=== PATIENT | female | born 1980 | race African-American/Black ===

== ENCOUNTER 2018-12-09 16:12 | Emergency (ER) | payer OTHER ==
[~2018-12-09] VITALS: Ht 157.5 cm; Wt 105.2 kg
[~2018-12-09 16:12] MED LIST: AMLO5TAB10 PO; ATOR20TA58 PO; GABA-585 PO; HYDR-2145 PO; HYDR-3164 PO; LIDO1ADH4 TP; LISI-130 PO; LISI1TAB20 PO; METF500T16 PO; NAPR-514 PO; TRAM50TA PO
[2018-12-09] MEDS ORDERED: ALBUTEROL SULFATE 2.5 MG/3 ML NEBU. NEB ONE (16:30)
[2018-12-09] MEDS ORDERED: predniSONE 10 MG TABLET PO ONE (16:30)
--- NOTE | 2018-12-09 16:37 | PHYS DOC ---
Past Medical History Past Medical History: Diabetes-Type II, Hypertension, Sickle Cell Disease, TIA Additional Past Medical Histor: tia 2010 & 2016 (SCOTT TAI APRN) Past Surgical History: Hysterectomy, Tonsillectomy, Tubal ligation, Other Additional Past Surgical Histo: D&C, addenoidectomy, rods & screws Left FA (SCOTT TAI APRN) Alcohol Use: None Drug Use: None (SCOTT TAI APRN) Attending Signature I have participated in the care of this patient and I have reviewed and agree with all pertinent clinical information above including history, exam, and recommendations. (VEENA CESPEDES MD) Adult General Chief Complaint Chief Complaint: PLEURISY HPI HPI Patient is a 38 year old female who presents with 4 days of cough, nasal congestion, shortness of breath chest tightness. Patient denies fever. Patient states Sunday and Sunday she had some vomiting. Patient states she starts coughing so hard is hard for her to catch her breath. Patient states she had asthma as a child. Patient does not smoke. Patient rates her pain a 7 out of 10 and states her chest is tight and sharp to mid chest. (SCOTT TAI APRN) Review of Systems Review of Systems HENT: nasal congestion or denies sore throat [] Respiratory: cough or shortness of breath [] Cardiovascular: No additional information not addressed in HPI [] GI: Denies abdominal pain. + nausea, +vomiting, denies bloody stools or diarrhea [] All other systems were reviewed and found to be within normal limits, except as documented in this note. (SCOTT TAI APRN) Current Medications Current Medications Current Medications Medications (Trade) Dose Ordered Sig/Joanna Start Time Stop Time Status Last Admin Dose Admin Albuterol Sulfate (Ventolin Neb Soln) 2.5 mg 1X ONCE 12/09/18 16:30 12/09/18 16:31 DC 12/09/18 16:37 2.5 MG Prednisone (Prednisone) 50 mg 1X ONCE 12/09/18 16:30 12/09/18 16:31 DC 12/09/18 16:30 50 MG Sodium Chloride 1,000 ml @ 1,000 mls/hr 1X ONCE 12/09/18 16:45 12/09/18 17:44 DC 12/09/18 17:09 1,000 MLS/HR (VEENA CESPEDES MD) Allergies Allergies Allergies Coded Allergies Type Severity Reaction Last Updated Verified No Known Drug Allergies 08/31/18 No (VEENA CESPEDES MD) Physical Exam Physical Exam Constitutional: Well developed, well nourished, no acute distress, non-toxic appearance. [] HENT: Normocephalic, atraumatic, bilateral external ears normal, oropharynx moist, no oral exudates, nose normal. [] Eyes: PERRLA, EOMI, conjunctiva normal, no discharge. [] Neck: Normal range of motion, no tenderness, supple, no stridor. [] Cardiovascular:Heart rate regular rhythm, no murmur [] Lungs & Thorax: Bilateral upper breath sounds clear, lower breath sound diminished to auscultation [] Abdomen: Bowel sounds normal, soft, no tenderness, no masses, no pulsatile masses. [] Skin: Warm, dry, no erythema, no rash. [] Extremities: No tenderness, no cyanosis, no clubbing, ROM intact, no edema. [] Neurologic: Alert and oriented X 3, normal motor function, normal sensory function, no focal deficits noted. [] Psychologic: Affect normal, judgement normal, mood normal. [] (SCOTT TAI APRN) Current Patient Data Vital Signs Vital Signs Date Time Temp Pulse Resp B/P (MAP) Pulse Ox O2 Delivery O2 Flow Rate FiO2 12/09/18 18:50 84 158/92 (114) 98 12/09/18 16:37 Room Air 12/09/18 16:15 98.1 16 98.1 (VEENA CESPEDES MD) Lab Values Laboratory Tests Test 12/09/18 16:30 12/09/18 17:05 Influenza Type A Antigen Negative (NEGATIVE) Influenza Type B Antigen Negative (NEGATIVE) White Blood Count 6.5 x10^3/uL (4.0-11.0) Red Blood Count 6.01 x10^6/uL (3.50-5.70) H Hemoglobin 10.8 g/dL (12.0-15.5) L Hematocrit 34.7 % (36.0-47.0) L Mean Corpuscular Volume 58 fL (79-100) L Mean Corpuscular Hemoglobin 18 pg (25-35) L Mean Corpuscular Hemoglobin Concent 31 g/dL (31-37) Red Cell Distribution Width 17.5 % (11.5-14.5) H Platelet Count 246 x10^3/uL (140-400) Neutrophils (%) (Auto) 45 % (31-73) Lymphocytes (%) (Auto) 41 % (24-48) Monocytes (%) (Auto) 8 % (0-9) Eosinophils (%) (Auto) 6 % (0-3) H Basophils (%) (Auto) 1 % (0-3) Neutrophils # (Auto) 2.9 x10^3/uL (1.8-7.7) Lymphocytes # (Auto) 2.6 x10^3/uL (1.0-4.8) Monocytes # (Auto) 0.5 x10^3/uL (0.0-1.1) Eosinophils # (Auto) 0.4 x10^3/uL (0.0-0.7) Basophils # (Auto) 0.1 x10^3/uL (0.0-0.2) Platelet Estimate Adequate (ADEQUATE) Hypochromasia Marked Anisocytosis Slight Microcytosis Marked Target Cells Few Ovalocytes Occ Absolute Reticulocyte Count 0.087 x10^6/uL (0.020-0.120) Percent Reticulocyte Count 1.5 % (0.5-2.3) Immature Reticulocyte Fraction 0.48 (0.20-0.60) Sodium Level 143 mmol/L (136-145) Potassium Level 3.9 mmol/L (3.5-5.1) Chloride Level 105 mmol/L (98-107) Carbon Dioxide Level 29 mmol/L (21-32) Anion Gap 9 (6-14) Blood Urea Nitrogen 13 mg/dL (7-20) Creatinine 0.8 mg/dL (0.6-1.0) Estimated GFR (Cockcroft-Gault) 97.7 BUN/Creatinine Ratio 16 (6-20) Glucose Level 94 mg/dL (70-99) Calcium Level 8.5 mg/dL (8.5-10.1) Total Bilirubin 0.6 mg/dL (0.2-1.0) Aspartate Amino Transferase (AST) 13 U/L (15-37) L Alanine Aminotransferase (ALT) 13 U/L (14-59) L Alkaline Phosphatase 64 U/L (46-116) Total Protein 7.9 g/dL (6.4-8.2) Albumin 3.7 g/dL (3.4-5.0) Albumin/Globulin Ratio 0.9 (1.0-1.7) L Laboratory Tests 12/09/18 17:05 Laboratory Tests 12/09/18 17:05 (VEENA CESPEDES MD) Lab Values Laboratory Tests Test 12/09/18 16:30 12/09/18 17:05 Influenza Type A Antigen Negative (NEGATIVE) Influenza Type B Antigen Negative (NEGATIVE) Sodium Level 143 mmol/L (136-145) Potassium Level 3.9 mmol/L (3.5-5.1) Chloride Level 105 mmol/L (98-107) Carbon Dioxide Level 29 mmol/L (21-32) Anion Gap 9 (6-14) Blood Urea Nitrogen 13 mg/dL (7-20) Creatinine 0.8 mg/dL (0.6-1.0) Estimated GFR (Cockcroft-Gault) 97.7 BUN/Creatinine Ratio 16 (6-20) Glucose Level 94 mg/dL (70-99) Calcium Level 8.5 mg/dL (8.5-10.1) Total Bilirubin 0.6 mg/dL (0.2-1.0) Aspartate Amino Transferase (AST) 13 U/L (15-37) L Alanine Aminotransferase (ALT) 13 U/L (14-59) L Alkaline Phosphatase 64 U/L (46-116) Total Protein 7.9 g/dL (6.4-8.2) Albumin 3.7 g/dL (3.4-5.0) Albumin/Globulin Ratio 0.9 (1.0-1.7) L Laboratory Tests 12/09/18 17:05 (SCOTT TAI APRN) EKG EKG Sinus Rhythm and no STEMI[] Interpretation Time: [address] Cespedes (SCOTT TAI APRN) Radiology/Procedures Radiology/Procedures [] (SCOTT TAI APRN) Impressions: [facility] [address] [place] [address] IMAGING REPORT Signed PATIENT: JOS CHAMPAGNE MACCOUNT: [id number] : 1980 LOCATION: ER AGE: 38 SEX: F EXAM STATUS: REG ER ORD. PHYSICIAN: SCOTT TAI APRN REASON: cough PROCEDURE: CHEST PA & LATERAL Exam: Chest 2 views INDICATION: Cough TECHNIQUE: Frontal and lateral views the chest Comparisons: 08/31/2018 FINDINGS: The cardiomediastinal silhouette and pulmonary vessels are within normal limits. Patchy airspace disease is noted within the lingula. Remaining lungs are clear. No pleural effusion. IMPRESSION: Lines likely representing developing consolidation in the lingula. Follow-up imaging posttreatment to ensure resolution is recommended. Electronically signed by: Aki Nunez MD (12/09/2018 5:20 PM) [facility] [place] DICTATED and SIGNED BY: AKI NUNEZ MD DATE: 12/09/18 1720 (SCOTT TAI APRN) Course & Med Decision Making Course & Med Decision Making Speaks in full clear sentences. Patient states she has been keeping fluids down today. Patient states she worked today but had to leave the room several times due to coughing. Denies dizziness, abdominal pain, nausea, diarrhea, headache, visual changes. Post nasal drip. Denies throat pain or ear pain. Skin pink warm and dry. Ambulatory with a steady gait. PERRLA. No extremities swelling. She states she's been taking NyQuil and DayQuil, and Mucinex. Chest xray shows Lines likely representing developing consolidation in the lingula. Follow-up imaging posttreatment to ensure resolution is recommended. Patient to be treated with Azithromycin. (SCOTT TAI APRN) Dragon Disclaimer Dragon Disclaimer This electronic medical record was generated, in whole or in part, using a voice recognition dictation system. (SCOTT TAI APRN) Departure Departure Impression: Primary Impression: Pneumonia Disposition: 01 HOME, SELF-CARE Condition: STABLE Referrals: NO PCP (PCP) Patient Instructions: Pneumonia, Adult Additional Instructions: Follow up with primary care provider in the next week. Take medications as prescribed. Drink plenty of fluids. Scripts Benzonatate (TESSALON PERLE) 100 Mg Capsule 1 CAP PO TID, #30 CAP Prov: SCOTT TAI APRN 12/09/18 Albuterol Sulfate (PROAIR HFA INHALER) 8.5 Gm Hfa.aer.ad 1 PUFF INH PRN Q6HRS PRN for SHORTNESS OF BREATH, #1 INHALER 0 Refills Prov: SCOTT TAI APRN 12/09/18 Azithromycin (AZITHROMYCIN TABLET) 250 Mg Tablet 1 PKG PO UD for 5 Days, #6 TAB 0 Refills 2 the first day followed by 1 for days 2-5 Prov: SCOTT TAI APRN 12/09/18 Methylprednisolone (MEDROL) 4 Mg Tab.ds.pk 1 PKG PO UD, #1 PKG Prov: SCOTT TAI APRN 12/09/18 Problem Qualifiers Primary Impression: Pneumonia Pneumonia type: due to unspecified organism Laterality: left Lung location: unspecified part of lung Qualified Codes: J18.9 - Pneumonia, unspecified organism SCOTT ATI APRN Dec 09, 2018 16:36 VEENA CESPEDES MD Dec 10, 2018 06:09
[2018-12-09] MEDS ORDERED: IV NORMAL SALINE 1000ML BAG 1,000 ML IV ONE (16:45)
[2018-12-09 17:00] LABS: INFLUENZA A PATIENT NEGATIVE (NEGATIVE); INFLUENZA B PATIENT NEGATIVE (NEGATIVE)
[2018-12-09 17:19] LABS: BASO # 0.1 x10^3/uL (0.0-0.2); BASO % 1 % (0-3); EOS # 0.4 x10^3/uL (0.0-0.7); EOS % 6 % (0-3); HEMATOCRIT 34.7 % (36.0-47.0); HEMOGLOBIN 10.8 g/dL (12.0-15.5); LYMPH # 2.6 x10^3/uL (1.0-4.8); LYMPH % 41 % (24-48); MEAN CORPUSCULAR HEMOGLOBIN 18 pg (25-35); MEAN CORPUSCULAR HGB CONC 31 g/dL (31-37); MEAN CORPUSCULAR VOLUME 58 fL (79-100); MONO # 0.5 x10^3/uL (0.0-1.1); MONO % 8 % (0-9); NEUT # 2.9 x10^3/uL (1.8-7.7); NEUT % 45 % (31-73); PLATELET COUNT 246 x10^3/uL (140-400); RED BLOOD COUNT 6.01 x10^6/uL (3.50-5.40); RED CELL DISTRIBUTION WIDTH 17.5 % (11.5-14.5); WHITE BLOOD COUNT 6.5 x10^3/uL (4.0-11.0)
[2018-12-09 17:21] LABS: CALCIUM 8.5 mg/dL (8.5-10.1); CREATININE 0.8 mg/dL (0.6-1.0); GFR 97.7; POTASSIUM 3.9 mmol/L (3.5-5.1)
--- NOTE | 2018-12-09 17:23 | RAD ---
Exam: Chest 2 views INDICATION: Cough TECHNIQUE: Frontal and lateral views the chest Comparisons: 08/31/2018 FINDINGS: The cardiomediastinal silhouette and pulmonary vessels are within normal limits. Patchy airspace disease is noted within the lingula. Remaining lungs are clear. No pleural effusion. IMPRESSION: Lines likely representing developing consolidation in the lingula. Follow-up imaging posttreatment to ensure resolution is recommended. Electronically signed by: Aki Pizarro MD (12/09/2018 5:20 PM) [facility]
[2018-12-09 17:27] LABS: ALBUMIN 3.7 g/dL (3.4-5.0); ALBUMIN/GLOBULIN RATIO 0.9 (1.0-1.7); TOTAL BILIRUBIN 0.6 mg/dL (0.2-1.0); TOTAL PROTEIN 7.9 g/dL (6.4-8.2)
[2018-12-09] MEDS ORDERED: METH4TAB2 PO (17:40)
[2018-12-09] MEDS ORDERED: BENZ100C PO (17:40)
[2018-12-09] MEDS ORDERED: AZIT250T6 PO (17:40)
[2018-12-09] MEDS ORDERED: ALBU2.5V8 INH (17:40)
[2018-12-09 18:50] VITALS: BP 158/92
[2018-12-09 19:17] LABS: PLT ESTIMATE ADEQUATE (ADEQUATE)
[2018-12-09 19:22] LABS: ANISOCYTOSIS SLIGHT; HYPOCHROMIA MARKED; MICROCYTOSIS MARKED; OVALOCYTES OCC; TARGET CELLS FEW
== END 2018-12-09 18:59 | disposition home or self-care (01) ==
LOC: ER 16:12
DX: J18.9 Pneumonia, unspecified organism (principal); R11.2 Nausea with vomiting, unspecified; I10 Essential (primary) hypertension; E11.9 Type 2 diabetes mellitus without complications; Z86.73 Personal history of transient ischemic attack (TIA), and cerebral infarction without residual deficits
CPT/HCPCS: 36415; 71046; 80053; 85025; 85045; 87804; 94640; 96360; 96361; 99285; J7030; J7512; J7613

== ENCOUNTER → 2019-09-12 | Outpatient (CLI) | payer OTHER ==
[~2019-09-12] MED LIST changes: +ALBU2.5V8 INH; +AZIT250T6 PO; +BENZ100C PO; +METH4TAB2 PO
== END | disposition home or self-care (01) ==
LOC: LAB 14:12
PROVIDERS: ATTEND Internal Medicine Pulmonary Disease
DX: Z11.59 Encounter for screening for other viral diseases (principal)
CPT/HCPCS: U0003-CS

== ENCOUNTER 2019-10-27 08:57 | Emergency (ER) | payer OTHER ==
[~2019-10-27] VITALS: Ht 157.5 cm; Wt 115.4 kg
--- NOTE | 2019-10-27 11:05 | RAD ---
CHEST PA LATERAL History: Reason: COUGH AND CONGESTION,PT STATES THINK SHE HAS GERD. / Spl. Instructions: / History: Comparison: December 09, 2018 Findings: No consolidation or pleural effusion. Normal heart size. No pneumothorax. Calcified right midlung pulmonary nodule, likely prior granulomatous disease, unchanged. Impression: 1. No acute cardiopulmonary process. Electronically signed by: Manjeet Bermeo DO (10/27/2019 11:02 AM) [facility]
[2019-10-27 11:54] LABS: CALCIUM 8.7 mg/dL (8.5-10.1); CREATININE 0.5 mg/dL (0.6-1.0); GFR 167.1; POTASSIUM 4.6 mmol/L (3.5-5.1)
[2019-10-27 12:00] LABS: ALBUMIN 3.6 g/dL (3.4-5.0); ALBUMIN/GLOBULIN RATIO 0.9 (1.0-1.7); TOTAL BILIRUBIN 0.7 mg/dL (0.2-1.0); TOTAL PROTEIN 7.8 g/dL (6.4-8.2)
[2019-10-27 12:02] LABS: PROTHROMBIN TIME PATIENT 12.5 SEC (11.7-14.0)
[2019-10-27 12:27] LABS: BILIRUBIN,URINE NEGATIVE (NEG); CLARITY,URINE CLEAR; COLOR,URINE YELLOW; NITRITE,URINE NEGATIVE (NEG); PH,URINE 6.5 (<5.0-8.0); PROTEIN,URINE NEGATIVE (NEG-TRACE)
[2019-10-27 12:34] LABS: BASO # 0.1 x10^3/uL (0.0-0.2); BASO % 1 % (0-3); EOS # 0.2 x10^3/uL (0.0-0.7); EOS % 3 % (0-3); HEMATOCRIT 38.2 % (36.0-47.0); HEMOGLOBIN 11.8 g/dL (12.0-15.5); LYMPH # 2.5 x10^3/uL (1.0-4.8); LYMPH % 39 % (24-48); MEAN CORPUSCULAR HEMOGLOBIN 18 pg (25-35); MEAN CORPUSCULAR HGB CONC 31 g/dL (31-37); MEAN CORPUSCULAR VOLUME 58 fL (79-100); MONO # 0.4 x10^3/uL (0.0-1.1); MONO % 6 % (0-9); NEUT # 3.4 x10^3/uL (1.8-7.7); NEUT % 52 % (31-73); PLATELET COUNT 288 x10^3/uL (140-400); RED BLOOD COUNT 6.55 x10^6/uL (3.50-5.40); RED CELL DISTRIBUTION WIDTH 17.4 % (11.5-14.5); WHITE BLOOD COUNT 6.5 x10^3/uL (4.0-11.0)
[2019-10-27 12:50] LABS: BACTERIA,URINE FEW /HPF (0-FEW); RBC,URINE OCC /HPF (0-2); SQUAMOUS EPITHELIAL CELL,UR MOD /LPF
[2019-10-27] MEDS ORDERED: SUCR1TAB35 PO (13:38)
[2019-10-27] MEDS ORDERED: OMEP20TA63 PO (13:38)
[2019-10-27 13:39] VITALS: BP 188/89
--- NOTE | 2019-10-27 13:39 | PHYS DOC ---
Past Medical History Past Medical History: Diabetes-Type II, GERD, Hypertension, Sickle Cell Disease, TIA Additional Past Medical Histor: tia 2010 & 2016,TMJ Past Surgical History: Hysterectomy, Tonsillectomy, Tubal ligation, Other Additional Past Surgical Histo: D&C, addenoidectomy, rods & screws Left FA Smoking Status: Never Smoker Alcohol Use: None Drug Use: None General Adult EDM: Chief Complaint: abdominal pain HPI: HPI: Patient is a 39 year old female who presented to ER today for evaluation of multiple problem. Patient says she has been having epigastric abdominal pain off and on sore for several months. Patient said every morning she woke up she felt a sour taste, she saw some dark staining on her tongue. Patient says she has a history of acid reflux. Patient says she has been having some congestion, nonproductive for several weeks as well. Patient denies any fever, no chest pain, no trouble breathing. Patient said her TMJ flareup also whenever she open her mouth she hears some cracking noise. Review of Systems: Review of Systems: Constitutional: Denies fever or chills. [] Eyes: Denies change in visual acuity. [] HENT: Denies nasal congestion or sore throat. [] Respiratory: Positive for nonproductive cough, no trouble breathing.] Cardiovascular: Denies chest pain or edema. [] GI: Positive for abdominal pain, no nausea vomiting. : Denies dysuria. [] Musculoskeletal: Denies back pain or joint pain. [] Integument: Denies rash. [] Neurologic: Denies headache, focal weakness or sensory changes. [] Endocrine: Denies polyuria or polydipsia. [] Lymphatic: Denies swollen glands. [] Psychiatric: Denies depression or anxiety. [] Heart Score: Risk Factors: Risk Factors: DM, Current or recent (<one month) smoker, HTN, HLP, family history of CAD, obesity. Risk Scores: Score 0 - 3: 2.5% MACE over next 6 weeks - Discharge Home Score 4 - 6: 20.3% MACE over next 6 weeks - Admit for Clinical Observation Score 7 - 10: 72.7% MACE over next 6 weeks - Early Invasive Strategies Allergies: Allergies: Allergies Coded Allergies Type Severity Reaction Last Updated Verified No Known Drug Allergies 08/31/18 No Physical Exam: PE: Constitutional: Well developed, well nourished, no acute distress, non-toxic appearance. [] HENT: Normocephalic, atraumatic, bilateral external ears normal, oropharynx m oist, no oral exudates, nose normal. [] Eyes: PERRLA, EOMI, conjunctiva normal, no discharge. [] Neck: Normal range of motion, no tenderness, supple, no stridor. [] Cardiovascular:Heart rate regular rhythm, no murmur [] Lungs & Thorax: Bilateral breath sounds clear to auscultation [] Abdomen: Bowel sounds normal, soft, no tenderness, no masses, no pulsatile masses. [] Skin: Warm, dry, no erythema, no rash. [] Back: No tenderness, no CVA tenderness. [] Extremities: No tenderness, no cyanosis, no clubbing, ROM intact, no edema. [] Neurologic: Alert and oriented X 3, normal motor function, normal sensory function, no focal deficits noted. [] Psychologic: Affect normal, judgement normal, mood normal. [] Current Patient Data: Labs: Laboratory Tests Test 10/27/19 11:25 10/27/19 11:35 Urine Collection Type Unknown Urine Color Yellow Urine Clarity Clear Urine pH 6.5 (<5.0-8.0) Urine Specific [place] 1.020 (1.000-1.030) Urine Protein Negative mg/dL (NEG-TRACE) Urine Glucose (UA) Negative mg/dL (NEG) Urine Ketones (Stick) Negative mg/dL (NEG) Urine Blood Negative (NEG) Urine Nitrite Negative (NEG) Urine Bilirubin Negative (NEG) Urine Urobilinogen Dipstick 1.0 mg/dL (0.2 mg/dL) Urine Leukocyte Esterase Negative (NEG) Urine RBC Occ /HPF (0-2) Urine WBC 1-4 /HPF (0-4) Urine Squamous Epithelial Cells Mod /LPF Urine Bacteria Few /HPF (0-FEW) Urine Mucus Marked /LPF White Blood Count 6.5 x10^3/uL (4.0-11.0) Red Blood Count 6.55 x10^6/uL (3.50-5.40) H Hemoglobin 11.8 g/dL (12.0-15.5) L Hematocrit 38.2 % (36.0-47.0) Mean Corpuscular Volume 58 fL (79-100) L Mean Corpuscular Hemoglobin 18 pg (25-35) L Mean Corpuscular Hemoglobin Concent 31 g/dL (31-37) Red Cell Distribution Width 17.4 % (11.5-14.5) H Platelet Count 288 x10^3/uL (140-400) Neutrophils (%) (Auto) 52 % (31-73) Lymphocytes (%) (Auto) 39 % (24-48) Monocytes (%) (Auto) 6 % (0-9) Eosinophils (%) (Auto) 3 % (0-3) Basophils (%) (Auto) 1 % (0-3) Neutrophils # (Auto) 3.4 x10^3/uL (1.8-7.7) Lymphocytes # (Auto) 2.5 x10^3/uL (1.0-4.8) Monocytes # (Auto) 0.4 x10^3/uL (0.0-1.1) Eosinophils # (Auto) 0.2 x10^3/uL (0.0-0.7) Basophils # (Auto) 0.1 x10^3/uL (0.0-0.2) Platelet Estimate Pending Prothrombin Time 12.5 SEC (11.7-14.0) Prothrombin Time INR 1.0 (0.8-1.1) Activated Partial Thromboplast Time 29 SEC (24-38) Sodium Level 139 mmol/L (136-145) Potassium Level 4.6 mmol/L (3.5-5.1) Chloride Level 103 mmol/L (98-107) Carbon Dioxide Level 29 mmol/L (21-32) Anion Gap 7 (6-14) Blood Urea Nitrogen 8 mg/dL (7-20) Creatinine 0.5 mg/dL (0.6-1.0) L Estimated GFR (Cockcroft-Gault) 167.1 BUN/Creatinine Ratio 16 (6-20) Glucose Level 117 mg/dL (70-99) H Calcium Level 8.7 mg/dL (8.5-10.1) Total Bilirubin 0.7 mg/dL (0.2-1.0) Aspartate Amino Transferase (AST) 21 U/L (15-37) Alanine Aminotransferase (ALT) 20 U/L (14-59) Alkaline Phosphatase 68 U/L (46-116) Total Protein 7.8 g/dL (6.4-8.2) Albumin 3.6 g/dL (3.4-5.0) Albumin/Globulin Ratio 0.9 (1.0-1.7) L Lipase 110 U/L (73-393) Laboratory Tests 10/27/19 11:35 Laboratory Tests 10/27/19 11:35 Vital Signs: Vital Signs Date Time Temp Pulse Resp B/P (MAP) Pulse Ox O2 Delivery O2 Flow Rate FiO2 10/27/19 12:39 72 177/111 (133) 98 Room Air 10/27/19 09:55 98.7 18 98.7 EKG: EKG: [] Radiology/Procedures: Radiology/Procedures: [][facility] [address] [place] [address] IMAGING REPORT Signed PATIENT: JOS CHAMPAGNE MACCOUNT: [id number] : 1980 LOCATION: ER AGE: 39 SEX: F EXAM STATUS: REG ER ORD. PHYSICIAN: MIRI MOORE DO REASON: COUGH AND CONGESTION,PT STATES THINK SHE HAS GERD. PROCEDURE: CHEST PA & LATERAL CHEST PA LATERAL History: Reason: COUGH AND CONGESTION,PT STATES THINK SHE HAS GERD. / Spl. Instructions: / History: Comparison: December 09, 2018 Findings: No consolidation or pleural effusion. Normal heart size. No pneumothorax. Calcified right midlung pulmonary nodule, likely prior granulomatous disease, unchanged. Impression: 1. No acute cardiopulmonary process. Electronically signed by: Manjeet Bermeo DO (10/27/2019 11:02 AM) [facility] DICTATED and SIGNED BY: MANJEET BERMEO DO DATE: 10/27/19 1102 Course & Med Decision Making: Course & Med Decision Making Pertinent Labs and Imaging studies reviewed. (See chart for details) [] Dragon Disclaimer: Dragon Disclaimer: This electronic medical record was generated, in whole or in part, using a voice recognition dictation system. Departure Departure Impression: Primary Impression: Gastritis Disposition: 01 HOME, SELF-CARE Condition: IMPROVED Referrals: NO PCP (PCP) ADAM HERNANDEZ MD please follow up with this GI doctor for outpatient evaluation. Patient Instructions: Gastritis, Adult Scripts Omeprazole Magnesium (PRILOSEC OTC) 20 Mg Tablet. 20 MG PO DAILY for 30 Days, #30 TAB Prov: MIRI MOORE DO 10/27/19 Sucralfate (CARAFATE) 1 Gm Tablet 1 TAB PO QID for 14 Days, #56 TAB 0 Refills Prov: MIRI MOORE DO 10/27/19 Justicifation of Admission Dx: Justifications for Admission: Justification of Admission Dx: N/A MIRI MOORE DO Oct 27, 2019 13:39
[2019-10-27 16:28] LABS: HYPOCHROMIA MOD; MICROCYTOSIS MARKED; PLT ESTIMATE ADEQUATE (ADEQUATE); POLYCHROMASIA SLIGHT; SCHISTOCYTES OCC
[2019-10-27 16:29] LABS: ANISOCYTOSIS SLIGHT; TARGET CELLS OCC
== END 2019-10-27 13:47 | disposition home or self-care (01) ==
LOC: ER 08:57
DX: K29.70 Gastritis, unspecified, without bleeding (principal); R10.13 Epigastric pain; R09.81 Nasal congestion; R05 Cough; E11.9 Type 2 diabetes mellitus without complications; K21.9 Gastro-esophageal reflux disease without esophagitis; I10 Essential (primary) hypertension; Z86.73 Personal history of transient ischemic attack (TIA), and cerebral infarction without residual deficits; Z90.710 Acquired absence of both cervix and uterus; Z98.51 Tubal ligation status; Z98.890 Other specified postprocedural states; Z90.89 Acquired absence of other organs
CPT/HCPCS: 36415; 71046; 80053; 81001; 83690; 85025; 85610; 85730; 99284

== ENCOUNTER → 2019-11-21 | Outpatient (CLI) | payer OTHER ==
[2019-10-27 13:39] VITALS: BP 188/89
[~2019-11-21] MED LIST changes: +OMEP20TA63 PO; +SUCR1TAB35 PO
--- NOTE | 2019-11-21 09:02 | RAD ---
Examination: ABDOMEN LTD History: Reason: BILE REFLUX GASTRITIS / Spl. Instructions: / History: Comparison/Correlation: None Findings: Upper abdominal ultrasound exam was performed. Nodular contour of the liver is evident. Liver has a length of 22.6 cm. Common bile duct diameter of 0.4 cm noted. Portal venous flow is normal. Gallbladder is normal. No cholelithiasis. Right kidney measures 12 cm x 5.9 cm x 4.6. No right hydronephrosis. Proximal pancreas is normal. Distal pancreas is obscured by bowel gas. Inferior vena cava is unremarkable. There is no upper abdominal ascites. No intrahepatic dilatation. Abdominal aorta was not imaged. Impression: Hepatomegaly. Nodular contour of the liver of concern for cirrhosis or other fibrotic process. Electronically signed by: Gilberto Dickey MD (11/21/2019 8:59 AM) [id number]
== END | disposition home or self-care (01) ==
LOC: US 09:02
PROVIDERS: ATTEND Family Medicine
DX: K29.60 Other gastritis without bleeding (principal); K76.0 Fatty (change of) liver, not elsewhere classified
CPT/HCPCS: 76705

== ENCOUNTER → 2019-12-11 | Outpatient (CLI) | payer OTHER ==
[~2019-12-11] MED LIST changes: +AMLO-186 PO; -AMLO5TAB10 PO
[2019-12-11 13:59] LABS: ALBUMIN 3.2 g/dL (3.4-5.0); ALBUMIN/GLOBULIN RATIO 0.8 (1.0-1.7); CALCIUM 8.3 mg/dL (8.5-10.1); CREATININE 0.6 mg/dL (0.6-1.0); GFR 135.4; POTASSIUM 3.7 mmol/L (3.5-5.1); TOTAL BILIRUBIN 0.6 mg/dL (0.2-1.0); TOTAL PROTEIN 7.4 g/dL (6.4-8.2)
== END ==
LOC: LAB 12:37
PROVIDERS: ATTEND Internal Medicine Gastroenterology
DX: K74.69 Other cirrhosis of liver (principal)
CPT/HCPCS: 80053; 82728; 83516; 83540; 83550; 86038; 86706; 86803; 87340; 87522; 87902

== ENCOUNTER → 2020-01-16 | Outpatient (CLI) | payer OTHER | LOC: LAB 10:54 | PROVIDERS: ATTEND Internal Medicine Pulmonary Disease | DX: U07.1 COVID-19 (principal); R06.02 Shortness of breath | CPT/HCPCS: U0003 ==

== ENCOUNTER → 2020-01-30 | Outpatient (CLI) | payer OTHER ==
[2020-01-30 10:04] LABS: BASO # 0.1 x10^3/uL (0.0-0.2); BASO % 1 % (0-3); EOS # 0.2 x10^3/uL (0.0-0.7); EOS % 2 % (0-3); HEMOGLOBIN 10.3 g/dL (12.0-15.5); LYMPH # 2.2 x10^3/uL (1.0-4.8); LYMPH % 27 % (24-48); MEAN CORPUSCULAR HEMOGLOBIN 18 pg (25-35); MEAN CORPUSCULAR HGB CONC 31 g/dL (31-37); MEAN CORPUSCULAR VOLUME 57 fL (79-100); MONO # 0.5 x10^3/uL (0.0-1.1); MONO % 6 % (0-9); NEUT # 5.4 x10^3/uL (1.8-7.7); NEUT % 64 % (31-73); PLATELET COUNT 261 x10^3/uL (140-400); RED BLOOD COUNT 5.79 x10^6/uL (3.50-5.40); RED CELL DISTRIBUTION WIDTH 17.5 % (11.5-14.5); WHITE BLOOD COUNT 8.4 x10^3/uL (4.0-11.0)
[2020-01-30 10:57] LABS: ALBUMIN 3.4 g/dL (3.4-5.0); ALBUMIN/GLOBULIN RATIO 0.8 (1.0-1.7); CALCIUM 8.6 mg/dL (8.5-10.1); CREATININE 0.6 mg/dL (0.6-1.0); GFR 135.4; POTASSIUM 3.7 mmol/L (3.5-5.1); TOTAL BILIRUBIN 0.6 mg/dL (0.2-1.0); TOTAL PROTEIN 7.5 g/dL (6.4-8.2)
[2020-01-30 11:11] LABS: HYPOCHROMIA PRESENT; PLT ESTIMATE ADEQUATE (ADEQUATE); POLYCHROMASIA PRESENT
[2020-01-30 11:12] LABS: ANISOCYTOSIS PRESENT; MICROCYTOSIS PRESENT
[2020-01-31 04:24] LABS: HEMOGLOBIN A1C 7.4 % (4.8-5.6)
== END ==
LOC: LAB 09:30
PROVIDERS: ATTEND Family Medicine
DX: D57.1 Sickle-cell disease without crisis (principal); E11.9 Type 2 diabetes mellitus without complications; I10 Essential (primary) hypertension; R10.13 Epigastric pain
CPT/HCPCS: 80053; 82150; 82728; 83036; 83540; 83550; 83690; 85025; 86677

== ENCOUNTER 2020-02-16 21:52 | Inpatient (IN) | payer OTHER ==
[~2020-02-16] VITALS: Ht 157.5 cm; Wt 119.5 kg
[2020-02-16 22:49] LABS: BASO # 0.2 x10^3/uL (0.0-0.2); BASO % 2 % (0-3); EOS # 0.2 x10^3/uL (0.0-0.7); EOS % 2 % (0-3); HEMATOCRIT 33.1 % (36.0-47.0); HEMOGLOBIN 10.2 g/dL (12.0-15.5); LYMPH # 3.5 x10^3/uL (1.0-4.8); LYMPH % 39 % (24-48); MEAN CORPUSCULAR HEMOGLOBIN 18 pg (25-35); MEAN CORPUSCULAR HGB CONC 31 g/dL (31-37); MEAN CORPUSCULAR VOLUME 57 fL (79-100); MONO # 0.5 x10^3/uL (0.0-1.1); MONO % 5 % (0-9); NEUT # 4.7 x10^3/uL (1.8-7.7); NEUT % 52 % (31-73); PLATELET COUNT 254 x10^3/uL (140-400); RED BLOOD COUNT 5.79 x10^6/uL (3.50-5.40); RED CELL DISTRIBUTION WIDTH 17.6 % (11.5-14.5)
[2020-02-16 22:57] LABS: PROTHROMBIN TIME PATIENT 13.4 SEC (11.7-14.0)
[2020-02-16] MEDS ORDERED: IV NORMAL SALINE 1000ML BAG 1,000 ML IV ONE (23:00)
[2020-02-16 23:31] LABS: CALCIUM 8.8 mg/dL (8.5-10.1); CREATININE 0.8 mg/dL (0.6-1.0); GFR 97.1; POTASSIUM 3.6 mmol/L (3.5-5.1)
[2020-02-16 23:34] LABS: % BASOS 2 % (0-3); % EOS 2 % (0-5); % LYMPHS 42 % (24-48); % MONOS 4 % (0-10); % SEGS 50 % (35-66)
[2020-02-16 23:35] LABS: ANISOCYTOSIS SLIGHT; HYPOCHROMIA MARKED; MICROCYTOSIS MARKED; PLT ESTIMATE ADEQUATE (ADEQUATE); POLYCHROMASIA SLIGHT
[2020-02-16 23:36] LABS: TARGET CELLS OCC
[2020-02-16 23:37] LABS: ALBUMIN 3.5 g/dL (3.4-5.0); ALBUMIN/GLOBULIN RATIO 0.8 (1.0-1.7); TOTAL BILIRUBIN 0.8 mg/dL (0.2-1.0); TOTAL PROTEIN 7.9 g/dL (6.4-8.2)
[2020-02-16] MEDS ORDERED: IOHEXOL 300 MG/ML 100ML VIAL. IV ONE (23:45)
[2020-02-16] MEDS ORDERED: CONTRAST GIVEN. MC PRN (23:45)
[2020-02-16] MEDS ORDERED: IOHEXOL 240 MG/ML 50ML VIAL. PO ONE (23:45)
[2020-02-17] VITALS (7 sets, daily range): BP systolic 137–158; BP diastolic 80–107
--- NOTE | 2020-02-17 00:08 | ED.ADGEN ---
Past Medical History Past Medical History: Diabetes-Type II, GERD, Hypertension, Sickle Cell Disease, TIA Additional Past Medical Histor: tia 2011 & 2016,TMJ Past Surgical History: Hysterectomy, Tonsillectomy, Tubal ligation, Other Additional Past Surgical Histo: D&C, addenoidectomy, rods & screws Left FA Smoking Status: Never Smoker Alcohol Use: None Drug Use: None General Adult EDM: Chief Complaint: BLOODY STOOL HPI: HPI: Patient is a 39-year-old female who presents to the emergency room complaining of rectal bleeding. She states that she has had 3 episodes of rectal bleeding since this evening. She states one of them she believes was about 100 mL. She has never had rectal bleeding previously. She was recently diagnosed with cirrhosis of the liver but is never had any kind of bleeding due to this. She denies any nausea, vomiting, diarrhea, severe abdominal pain. She does have some mild abdominal discomfort in her lower abdomen. She was feeling fine until the rectal bleeding started. She has not had any fevers or chills. She denies any traumas. She does not have rectal sex. Review of Systems: Review of Systems: Complete ROS is negative unless otherwise documented in HPI Current Medications: Current Medications Medications (Trade) Dose Ordered Sig/Joanna Start Time Stop Time Status Last Admin Dose Admin Info (CONTRAST GIVEN -- Rx MONITORING) 1 each PRN DAILY PRN 02/16/20 23:45 02/18/20 23:44 Iohexol (Omnipaque 240 Mg/ml) 30 ml 1X ONCE 02/16/20 23:45 02/16/20 23:46 DC 02/17/20 00:03 30 ML Iohexol (Omnipaque 300 Mg/ml) 75 ml 1X ONCE 02/16/20 23:45 02/16/20 23:46 DC 02/17/20 00:03 75 ML Piperacillin Sod/ Tazobactam Sod 3.375 gm/Sodium Chloride 50 ml @ 100 mls/hr 1X ONCE 02/17/20 01:15 02/17/20 01:44 UNV Sodium Chloride 1,000 ml @ 1,000 mls/hr 1X ONCE 02/16/20 23:00 02/16/20 23:59 DC 02/16/20 23:07 1,000 MLS/HR Allergies: Allergies: Allergies Coded Allergies Type Severity Reaction Last Updated Verified No Known Drug Allergies 08/31/18 No Physical Exam: PE: General: Awake, alert, NAD. Well Nourished, well hydrated. Cooperative HEENT: Atraumatic, EOMI, PERRL, airway patent, moist oral mucosa Neck: Supple, trachea midline Respiratory: CTA bilaterally, normal effort, no wheezing/crackles CV: RRR, no murmur, cap refill <2 GI: Soft, nondistended, nontender, no masses MSK: No obvious deformities Skin: Warm, dry, intact Neuro: A&O x3, speech NL, sensory and motor grossly intact, no focal deficits Psych: Normal affect, normal mood, not suicidal or homicidal Current Patient Data: Labs: Laboratory Tests Test 02/16/20 22:40 02/16/20 23:02 02/17/20 00:23 White Blood Count 9.0 x10^3/uL (4.0-11.0) Red Blood Count 5.79 x10^6/uL (3.50-5.40) H Hemoglobin 10.2 g/dL (12.0-15.5) L Hematocrit 33.1 % (36.0-47.0) L Mean Corpuscular Volume 57 fL (79-100) L Mean Corpuscular Hemoglobin 18 pg (25-35) L Mean Corpuscular Hemoglobin Concent 31 g/dL (31-37) Red Cell Distribution Width 17.6 % (11.5-14.5) H Platelet Count 254 x10^3/uL (140-400) Neutrophils (%) (Auto) 52 % (31-73) Lymphocytes (%) (Auto) 39 % (24-48) Monocytes (%) (Auto) 5 % (0-9) Eosinophils (%) (Auto) 2 % (0-3) Basophils (%) (Auto) 2 % (0-3) Neutrophils # (Auto) 4.7 x10^3/uL (1.8-7.7) Lymphocytes # (Auto) 3.5 x10^3/uL (1.0-4.8) Monocytes # (Auto) 0.5 x10^3/uL (0.0-1.1) Eosinophils # (Auto) 0.2 x10^3/uL (0.0-0.7) Basophils # (Auto) 0.2 x10^3/uL (0.0-0.2) Segmented Neutrophils % 50 % (35-66) Lymphocytes % 42 % (24-48) Monocytes % 4 % (0-10) Eosinophils % 2 % (0-5) Basophils % 2 % (0-3) Platelet Estimate Adequate (ADEQUATE) Polychromasia Slight Hypochromasia Marked Anisocytosis Slight Microcytosis Marked Target Cells Occ Prothrombin Time 13.4 SEC (11.7-14.0) Prothrombin Time INR 1.1 (0.8-1.1) Sodium Level 141 mmol/L (136-145) Potassium Level 3.6 mmol/L (3.5-5.1) Chloride Level 103 mmol/L (98-107) Carbon Dioxide Level 29 mmol/L (21-32) Anion Gap 9 (6-14) Blood Urea Nitrogen 12 mg/dL (7-20) Creatinine 0.8 mg/dL (0.6-1.0) Estimated GFR (Cockcroft-Gault) 97.1 BUN/Creatinine Ratio 15 (6-20) Glucose Level 120 mg/dL (70-99) H Calcium Level 8.8 mg/dL (8.5-10.1) Total Bilirubin 0.8 mg/dL (0.2-1.0) Aspartate Amino Transferase (AST) 13 U/L (15-37) L Alanine Aminotransferase (ALT) 19 U/L (14-59) Alkaline Phosphatase 86 U/L (46-116) Total Protein 7.9 g/dL (6.4-8.2) Albumin 3.5 g/dL (3.4-5.0) Albumin/Globulin Ratio 0.8 (1.0-1.7) L Urine Collection Type Unknown Urine Color Yellow Urine Clarity Clear Urine pH 7.0 (<5.0-8.0) Urine Specific [place] >=1.030 (1.000-1.030) Urine Protein Negative mg/dL (NEG-TRACE) Urine Glucose (UA) Negative mg/dL (NEG) Urine Ketones (Stick) Negative mg/dL (NEG) Urine Blood Negative (NEG) Urine Nitrite Negative (NEG) Urine Bilirubin Negative (NEG) Urine Urobilinogen Dipstick 1.0 mg/dL (0.2 mg/dL) Urine Leukocyte Esterase Negative (NEG) Urine RBC Occ /HPF (0-2) Urine WBC 1-4 /HPF (0-4) Urine Squamous Epithelial Cells Many /LPF Urine Bacteria Few /HPF (0-FEW) Urine Mucus Slight /LPF Laboratory Tests 02/16/20 22:40 Laboratory Tests 02/16/20 23:02 Vital Signs: Vital Signs Date Time Temp Pulse Resp B/P (MAP) Pulse Ox O2 Delivery O2 Flow Rate FiO2 02/16/20 22:23 98.7 90 16 161/105 (123) 100 Room Air 98.7 EKG: EKG: [] Heart Score: Risk Factors: Risk Factors: DM, Current or recent (<one month) smoker, HTN, HLP, family history of CAD, obesity. Risk Scores: Score 0 - 3: 2.5% MACE over next 6 weeks - Discharge Home Score 4 - 6: 20.3% MACE over next 6 weeks - Admit for Clinical Observation Score 7 - 10: 72.7% MACE over next 6 weeks - Early Invasive Strategies Radiology/Procedures: Radiology/Procedures: [] Course & Med Decision Making: Course & Med Decision Making Pertinent Labs and Imaging studies reviewed. (See chart for details) Patient is 39-year-old female presents to the emergency room with rectal bleeding. Patient has a complicated medical history including sickle cell disease and cirrhosis of the liver. Coags, CBC, CMP, CT abdomen pelvis were ordered to evaluate for causes of bleeding. Coags and platelets are normal at this time. CT shows proctitis. Radiology recommends visualization to rule out malignancy. Patient will be admitted for consult by GIGriselda Price Disclaimer: Albert Disclaimer: This electronic medical record was generated, in whole or in part, using a voice recognition dictation system. Departure Departure Impression: Primary Impression: Proctitis Disposition: ADMITTED INPT THIS HOSP Condition: STABLE Referrals: Alicia PRINCE MD (PCP) KLAUS MANCILLA MD Feb 17, 2020 00:08
--- NOTE | 2020-02-17 00:17 | RAD ---
PQRS Compliance Statement: One or more of the following individualized dose reduction techniques were utilized for this examinat ion: 1. Automated exposure control 2. Adjustment of the mA and/or kV according to patient size 3. Use of iterative reconstruction technique CT abdomen/pelvis with contrast 02/16/2020 12:04 AM INDICATION: Rectal bleeding, sclerosis COMPARISON: None available TECHNIQUE: Multiple axial CT images of the abdomen and pelvis were obtained after the intravenous adm inistration of 75 mL Omnipaque 300. Coronal and sagittal reformats are provided. FINDINGS: Lung bases are clear. Heart size is within normal limits. Hepatomegaly. Spleen is not enlarged. Right hepatic lobe measures 23.4 cm. No definite hepatic mass i s identified. Adrenal glands are normal in appearance. Pancreas and gallbladder are normal. The abdom inal aorta is normal in course and caliber. There are no pathologically enlarged lymph nodes in the a bdomen and pelvis. There is no abdominal free fluid. There is no free intraperitoneal air. The kidney s enhance symmetrically. There is no suspicious renal mass. There is no hydronephrosis. There are no suspected calculi within the kidneys, ureters or urinary bladder. Urinary bladder is within normal li mits given degree of distention. Oral contrast was administered. Opacified bowel loops demonstrate no rmal mucosal fold pattern no bowel obstruction or inflammation. Appendix is normal in appearance. Mil d asymmetric fat stranding identified within the right mesorectal fat. Consideration may be given for proctitis with mild wall thickening of the rectum. Mild diverticulosis. No suspicious osseous normal ity. IMPRESSION: 1. Proctitis with inflammation localized to the rectum. Recommend direct visualization exclude underl mian neoplastic process. 2. Hepatomegaly. Electronically signed by: Clarisse Hussein MD (02/17/2020 12:14 AM) [facility]
[2020-02-17 00:33] LABS: BILIRUBIN,URINE NEGATIVE (NEG); CLARITY,URINE CLEAR; COLOR,URINE YELLOW; NITRITE,URINE NEGATIVE (NEG); PROTEIN,URINE NEGATIVE (NEG-TRACE)
[2020-02-17 00:40] LABS: BACTERIA,URINE FEW /HPF (0-FEW); RBC,URINE OCC /HPF (0-2)
[2020-02-17] MEDS ORDERED: PIPERACILLIN/TAZOBACTAM 3.375 GM in IV NORMAL SALINE 50ML 50 ML IV ONE (01:30)
[2020-02-17] MEDS ORDERED: METF500T16 PO (07:15)
--- NOTE | 2020-02-17 09:05 | PDOC1 ---
History and Physical Date of Admission Date of Admission DATE: 02/17/20 TIME: 09:04 History of Present Illness History of Present Illness 39-year-old female who presented to the emergency room complaining of rectal bleeding. had 3 episodes of rectal bleeding since 12-28 pm She states one of them she believes was about 100 mL. has never had rectal bleeding previously. She was recently diagnosed with cirrhosis of the liver but is never had any kind of bleeding due to this. She denies any nausea, vomiting, diarrhea, severe abdominal pain. She does have some mild abdominal discomfort in her lower abdomen. She was feeling fine until the rectal bleeding started. She has not had any fevers or chills. She denies any trauma followed by Dr. oLwe for cirrhosis thought related to sickle cell. Fibroscan showed fibrosis. Past labs showed negative AMA, EVELIA, ASMA, reactive Hep Bs Ab, and negative Hep C Ab. Past Medical History Past Medical History Past Medical History Past Medical History Past Medical History: Diabetes-Type II, GERD, Hypertension, Sickle Cell Disease, TIA Additional Past Medical Histor: tia 2010 & 2016,TMJ Past Surgical History: Hysterectomy, Tonsillectomy, Tubal ligation, Other Additional Past Surgical Histo: D&C, addenoidectomy, rods & screws Left FA Smoking Status: Never Smoker Alcohol Use: None Drug Use: None fhx obesity Cardiovascular: HTN Pulmonary: No pertinent hx GI: No pertinent hx, GI bleed Heme/Onc: No pertinent hx Hepatobiliary: No pertinent hx Psych: No pertinent hx Rheumatologic: No pertinent hx Infectious disease: No pertinent hx Renal/: No pertinent hx Endocrine: No pertinent hx Past Surgical History Past Surgical History: No pertinent history Family History Family History: High Cholestrol, Hypertension Social History Smoke: No ALCOHOL: none Drugs: None Current Medications Current Medications Current Medications Sodium Chloride 1,000 ml @ 1,000 mls/hr 1X ONCE IV Last administered on 02/16/20at 23:07; Start 02/16/20 at 23:00; Stop 02/16/20 at 23:59; Status DC Iohexol (Omnipaque 240 Mg/ml) 30 ml 1X ONCE PO Last administered on 02/17/20at 00:03; Start 02/16/20 at 23:45; Stop 02/16/20 at 23:46; Status DC Iohexol (Omnipaque 300 Mg/ml) 75 ml 1X ONCE IV Last administered on 02/17/20at 00:03; Start 02/16/20 at 23:45; Stop 02/16/20 at 23:46; Status DC Info (CONTRAST GIVEN -- Rx MONITORING) 1 each PRN DAILY PRN MC SEE COMMENTS; Start 02/16/20 at 23:45; Stop 02/18/20 at 23:44 Piperacillin Sod/ Tazobactam Sod 3.375 gm/Sodium Chloride 50 ml @ 100 mls/hr 1X ONCE IV Last administered on 02/17/20at 01:59; Start 02/17/20 at 01:30; Stop 02/17/20 at 01:59; Status DC Active Scripts Active Prilosec Otc (Omeprazole Magnesium) 20 Mg Tablet.dr 20 Mg PO DAILY 30 Days Lisinopril-Hctz 20-25 Mg Tab (Lisinopril/Hydrochlorothiazide) 1 Each Tablet 1 Tab PO DAILY 30 Days Amlodipine Besylate 5 Mg Tablet 5 Mg PO DAILY 30 Days Reported Metformin Hcl 500 Mg Tablet 500 Mg PO DAILY Allergies Allergies: Coded Allergies: No Known Drug Allergies (Unverified , 08/31/18) ROS Review of System 14 PT ROS OTHERWISE NEG General: YES: Fatigue Physical Exam Physical Exam General: Awake, alert, NAD. Well Nourished, well hydrated. Cooperative HEENT: Atraumatic, EOMI, PERRL, airway patent, moist oral mucosa Neck: Supple, trachea midline Respiratory: CTA bilaterally, normal effort, no wheezing/crackles CV: RRR, no murmur, cap refill <2 GI: Soft, nondistended, nontender, no masses MSK: No obvious deformities Skin: Warm, dry, intact Neuro: A&O x3, speech NL, sensory and motor grossly intact, no focal deficits Psych: Normal affect, normal mood General: Oriented X3, Cooperative Lungs: Clear to auscultation Heart: RRR Breasts: Not examined Abdomen: Soft Rectal Exam: not examined Extremities: No cyanosis, No edema Neuro: Normal speech, Strength at 5/5 X4 ext, Cranial nerves 3-12 NL Psych/Mental Status: Mental status NL, Mood NL Vitals Vitals Vital Signs Date Time Temp Pulse Resp B/P (MAP) Pulse Ox O2 Delivery O2 Flow Rate FiO2 02/17/20 07:00 98.5 84 17 137/80 (99) 93 Room Air 98.5 Labs Labs Laboratory Tests Test 02/16/20 22:40 02/16/20 23:02 02/17/20 00:23 02/17/20 02:16 White Blood Count 9.0 x10^3/uL (4.0-11.0) Red Blood Count 5.79 x10^6/uL (3.50-5.40) Hemoglobin 10.2 g/dL (12.0-15.5) Hematocrit 33.1 % (36.0-47.0) Mean Corpuscular Volume 57 fL (79-100) Mean Corpuscular Hemoglobin 18 pg (25-35) Mean Corpuscular Hemoglobin Concent 31 g/dL (31-37) Red Cell Distribution Width 17.6 % (11.5-14.5) Platelet Count 254 x10^3/uL (140-400) Neutrophils (%) (Auto) 52 % (31-73) Lymphocytes (%) (Auto) 39 % (24-48) Monocytes (%) (Auto) 5 % (0-9) Eosinophils (%) (Auto) 2 % (0-3) Basophils (%) (Auto) 2 % (0-3) Neutrophils # (Auto) 4.7 x10^3/uL (1.8-7.7) Lymphocytes # (Auto) 3.5 x10^3/uL (1.0-4.8) Monocytes # (Auto) 0.5 x10^3/uL (0.0-1.1) Eosinophils # (Auto) 0.2 x10^3/uL (0.0-0.7) Basophils # (Auto) 0.2 x10^3/uL (0.0-0.2) Segmented Neutrophils % 50 % (35-66) Lymphocytes % 42 % (24-48) Monocytes % 4 % (0-10) Eosinophils % 2 % (0-5) Basophils % 2 % (0-3) Platelet Estimate Adequate (ADEQUATE) Polychromasia Slight Hypochromasia Marked Anisocytosis Slight Microcytosis Marked Target Cells Occ Prothrombin Time 13.4 SEC (11.7-14.0) Prothromb Time International Ratio 1.1 (0.8-1.1) Sodium Level 141 mmol/L (136-145) Potassium Level 3.6 mmol/L (3.5-5.1) Chloride Level 103 mmol/L (98-107) Carbon Dioxide Level 29 mmol/L (21-32) Anion Gap 9 (6-14) Blood Urea Nitrogen 12 mg/dL (7-20) Creatinine 0.8 mg/dL (0.6-1.0) Estimated GFR (Cockcroft-Gault) 97.1 BUN/Creatinine Ratio 15 (6-20) Glucose Level 120 mg/dL (70-99) Calcium Level 8.8 mg/dL (8.5-10.1) Total Bilirubin 0.8 mg/dL (0.2-1.0) Aspartate Amino Transf (AST/SGOT) 13 U/L (15-37) Alanine Aminotransferase (ALT/SGPT) 19 U/L (14-59) Alkaline Phosphatase 86 U/L (46-116) Total Protein 7.9 g/dL (6.4-8.2) Albumin 3.5 g/dL (3.4-5.0) Albumin/Globulin Ratio 0.8 (1.0-1.7) Urine Collection Type Unknown Urine Color Yellow Urine Clarity Clear Urine pH 7.0 (<5.0-8.0) Urine Specific [place] >=1.030 (1.000-1.030) Urine Protein Negative mg/dL (NEG-TRACE) Urine Glucose (UA) Negative mg/dL (NEG) Urine Ketones (Stick) Negative mg/dL (NEG) Urine Blood Negative (NEG) Urine Nitrite Negative (NEG) Urine Bilirubin Negative (NEG) Urine Urobilinogen Dipstick 1.0 mg/dL (0.2 mg/dL) Urine Leukocyte Esterase Negative (NEG) Urine RBC Occ /HPF (0-2) Urine WBC 1-4 /HPF (0-4) Urine Squamous Epithelial Cells Many /LPF Urine Bacteria Few /HPF (0-FEW) Urine Mucus Slight /LPF Glucose (Fingerstick) 138 mg/dL (70-99) Test 02/17/20 07:10 Glucose (Fingerstick) 155 mg/dL (70-99) Laboratory Tests Test 02/16/20 22:40 02/16/20 23:02 02/17/20 00:23 02/17/20 02:16 White Blood Count 9.0 x10^3/uL (4.0-11.0) Red Blood Count 5.79 x10^6/uL (3.50-5.40) Hemoglobin 10.2 g/dL (12.0-15.5) Hematocrit 33.1 % (36.0-47.0) Mean Corpuscular Volume 57 fL (79-100) Mean Corpuscular Hemoglobin 18 pg (25-35) Mean Corpuscular Hemoglobin Concent 31 g/dL (31-37) Red Cell Distribution Width 17.6 % (11.5-14.5) Platelet Count 254 x10^3/uL (140-400) Neutrophils (%) (Auto) 52 % (31-73) Lymphocytes (%) (Auto) 39 % (24-48) Monocytes (%) (Auto) 5 % (0-9) Eosinophils (%) (Auto) 2 % (0-3) Basophils (%) (Auto) 2 % (0-3) Neutrophils # (Auto) 4.7 x10^3/uL (1.8-7.7) Lymphocytes # (Auto) 3.5 x10^3/uL (1.0-4.8) Monocytes # (Auto) 0.5 x10^3/uL (0.0-1.1) Eosinophils # (Auto) 0.2 x10^3/uL (0.0-0.7) Basophils # (Auto) 0.2 x10^3/uL (0.0-0.2) Segmented Neutrophils % 50 % (35-66) Lymphocytes % 42 % (24-48) Monocytes % 4 % (0-10) Eosinophils % 2 % (0-5) Basophils % 2 % (0-3) Platelet Estimate Adequate (ADEQUATE) Polychromasia Slight Hypochromasia Marked Anisocytosis Slight Microcytosis Marked Target Cells Occ Prothrombin Time 13.4 SEC (11.7-14.0) Prothromb Time International Ratio 1.1 (0.8-1.1) Sodium Level 141 mmol/L (136-145) Potassium Level 3.6 mmol/L (3.5-5.1) Chloride Level 103 mmol/L (98-107) Carbon Dioxide Level 29 mmol/L (21-32) Anion Gap 9 (6-14) Blood Urea Nitrogen 12 mg/dL (7-20) Creatinine 0.8 mg/dL (0.6-1.0) Estimated GFR (Cockcroft-Gault) 97.1 BUN/Creatinine Ratio 15 (6-20) Glucose Level 120 mg/dL (70-99) Calcium Level 8.8 mg/dL (8.5-10.1) Total Bilirubin 0.8 mg/dL (0.2-1.0) Aspartate Amino Transf (AST/SGOT) 13 U/L (15-37) Alanine Aminotransferase (ALT/SGPT) 19 U/L (14-59) Alkaline Phosphatase 86 U/L (46-116) Total Protein 7.9 g/dL (6.4-8.2) Albumin 3.5 g/dL (3.4-5.0) Albumin/Globulin Ratio 0.8 (1.0-1.7) Urine Collection Type Unknown Urine Color Yellow Urine Clarity Clear Urine pH 7.0 (<5.0-8.0) Urine Specific [place] >=1.030 (1.000-1.030) Urine Protein Negative mg/dL (NEG-TRACE) Urine Glucose (UA) Negative mg/dL (NEG) Urine Ketones (Stick) Negative mg/dL (NEG) Urine Blood Negative (NEG) Urine Nitrite Negative (NEG) Urine Bilirubin Negative (NEG) Urine Urobilinogen Dipstick 1.0 mg/dL (0.2 mg/dL) Urine Leukocyte Esterase Negative (NEG) Urine RBC Occ /HPF (0-2) Urine WBC 1-4 /HPF (0-4) Urine Squamous Epithelial Cells Many /LPF Urine Bacteria Few /HPF (0-FEW) Urine Mucus Slight /LPF Glucose (Fingerstick) 138 mg/dL (70-99) Test 02/17/20 07:10 Glucose (Fingerstick) 155 mg/dL (70-99) Images Images PQRS Compliance Statement: One or more of the following individualized dose reduction techniques were utilized for this examination: 1. Automated exposure control 2. Adjustment of the mA and/or kV according to patient size 3. Use of iterative reconstruction technique CT abdomen/pelvis with contrast 02/16/2020 12:04 AM INDICATION: Rectal bleeding, sclerosis COMPARISON: None available TECHNIQUE: Multiple axial CT images of the abdomen and pelvis were obtained after the intravenous administration of 75 mL Omnipaque 300. Coronal and sagittal reformats are provided. FINDINGS: Lung bases are clear. Heart size is within normal limits. Hepatomegaly. Spleen is not enlarged. Right hepatic lobe measures 23.4 cm. No definite hepatic mass is identified. Adrenal glands are normal in appearance. Pancreas and gallbladder are normal. The abdominal aorta is normal in course and caliber. There are no pathologically enlarged lymph nodes in the abdomen and pelvis. There is no abdominal free fluid. There is no free intraperitoneal air. The kidneys enhance symmetrically. There is no suspicious renal mass. There is no hydronephrosis. There are no suspected calculi within the kidneys, ureters or urinary bladder. Urinary bladder is within normal limits given degree of distention. Oral contrast was administered. Opacified bowel loops demonstrate normal mucosal fold pattern no bowel obstruction or inflammation. Appendix is normal in appearance. Mild asymmetric fat stranding identified within the right mesorectal fat. Consideration may be given for proctitis with mild wall thickening of the rectum. Mild diverticulosis. No suspicious osseous normality. IMPRESSION: 1. Proctitis with inflammation localized to the rectum. Recommend direct visualization exclude underlying neoplastic process. 2. Hepatomegaly. Electronically signed by: Main Hussein MD (02/17/2020 12:14 AM) [facility] DICTATED and SIGNED BY: MAIN HUSSEIN MD DATE: 02/17/20 [id number] VTE Prophylaxis Ordered VTE Prophylaxis Devices: No VTE Pharmacological Prophylaxi: No Assessment/Plan Assessment/Plan IMPRESSION: 1. Proctitis with inflammation localized to the rectum. exclude underlying neoplastic process. 2. Hepatomegaly. 3. morbid obesity 4. [address] 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 Fibroscan showed fibrosis. Past labs showed negative AMA, EVELIA, ASMA, reactive Hep Bs Ab, and negative Hep C Ab. plan admit GI CONSULT SERIAL H/H Justifications for Admission Other Justification ANAT DENG MD Feb 17, 2020 09:05
--- NOTE | 2020-02-17 09:16 | NUR ---
SW following. Discussed with RN, pt from home, room air, NPO. GI consulted. RN advised no SW needs at this time. SW will continue to follow.
--- NOTE | 2020-02-17 09:21 | PDOC2 ---
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 Has had some abdominal discomfort ("bloating") from epigastrium to umbilical region for at least a couple months. Constant and associated w/ decreased appetite, some nausea, and vomiting ("bile") yesterday x 1. Unimproved w/ Prilosec QD since November. Sometimes radiates to right side/back. Unchanged w/ eating and stooling. 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 No diarrhea, constipation, or melena. Recalls normal EGD @ [facility] w/ Dr. August in 2010. No previous colonoscopy. Has seen Dr. 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 Fibroscan showed fibrosis. Past labs showed negative AMA, EVELIA, ASMA, reactive Hep Bs Ab, and negative Hep C Ab. No GB, pancreas, or PUD history. No NSAIDs. B12 was normal in 08/2018. In 01/2020, iron profile was normal and H. pylori IgG and IgA Ab were elevated. PMH: PMH: HTN, DM, SCD, COVID-19 (12/2019) D&C, tubal ligation, hysterectomy, left arm surgery, tonsillectomy FH: Family History: Cancer (ovarian - sister, colon - great aunt), CVA, DM, Hypertension, Other (mother - Hep C (treated), PGM - SCD, great aunt - ?IBD) Social History: Smoke: No ALCOHOL: none Drugs: None ROS: GEN: Denies fevers, chills, sweats HEENT: Denies blurred vision, sore throat CV: Denies chest pain RESP: Denies shortness of air, cough GI: Per HPI : Denies hematuria, dysuria ENDO: +weight loss NEURO: Denies confusion, dizziness MSK: Denies weakness, joint pain/swelling SKIN: Denies jaundice, pruritus Vitals: Vitals: Vital Signs Date Time Temp Pulse Resp B/P (MAP) Pulse Ox O2 Delivery O2 Flow Rate FiO2 02/17/20 07:00 98.5 84 17 137/80 (99) 93 Room Air 98.5 Labs: Labs: Laboratory Tests Test 02/16/20 22:40 02/16/20 23:02 02/17/20 00:23 02/17/20 02:16 White Blood Count 9.0 x10^3/uL (4.0-11.0) Red Blood Count 5.79 x10^6/uL (3.50-5.40) Hemoglobin 10.2 g/dL (12.0-15.5) Hematocrit 33.1 % (36.0-47.0) Mean Corpuscular Volume 57 fL (79-100) Mean Corpuscular Hemoglobin 18 pg (25-35) Mean Corpuscular Hemoglobin Concent 31 g/dL (31-37) Red Cell Distribution Width 17.6 % (11.5-14.5) Platelet Count 254 x10^3/uL (140-400) Neutrophils (%) (Auto) 52 % (31-73) Lymphocytes (%) (Auto) 39 % (24-48) Monocytes (%) (Auto) 5 % (0-9) Eosinophils (%) (Auto) 2 % (0-3) Basophils (%) (Auto) 2 % (0-3) Neutrophils # (Auto) 4.7 x10^3/uL (1.8-7.7) Lymphocytes # (Auto) 3.5 x10^3/uL (1.0-4.8) Monocytes # (Auto) 0.5 x10^3/uL (0.0-1.1) Eosinophils # (Auto) 0.2 x10^3/uL (0.0-0.7) Basophils # (Auto) 0.2 x10^3/uL (0.0-0.2) Segmented Neutrophils % 50 % (35-66) Lymphocytes % 42 % (24-48) Monocytes % 4 % (0-10) Eosinophils % 2 % (0-5) Basophils % 2 % (0-3) Platelet Estimate Adequate (ADEQUATE) Polychromasia Slight Hypochromasia Marked Anisocytosis Slight Microcytosis Marked Target Cells Occ Prothrombin Time 13.4 SEC (11.7-14.0) Prothromb Time International Ratio 1.1 (0.8-1.1) Sodium Level 141 mmol/L (136-145) Potassium Level 3.6 mmol/L (3.5-5.1) Chloride Level 103 mmol/L (98-107) Carbon Dioxide Level 29 mmol/L (21-32) Anion Gap 9 (6-14) Blood Urea Nitrogen 12 mg/dL (7-20) Creatinine 0.8 mg/dL (0.6-1.0) Estimated GFR (Cockcroft-Gault) 97.1 BUN/Creatinine Ratio 15 (6-20) Glucose Level 120 mg/dL (70-99) Calcium Level 8.8 mg/dL (8.5-10.1) Total Bilirubin 0.8 mg/dL (0.2-1.0) Aspartate Amino Transf (AST/SGOT) 13 U/L (15-37) Alanine Aminotransferase (ALT/SGPT) 19 U/L (14-59) Alkaline Phosphatase 86 U/L (46-116) Total Protein 7.9 g/dL (6.4-8.2) Albumin 3.5 g/dL (3.4-5.0) Albumin/Globulin Ratio 0.8 (1.0-1.7) Urine Collection Type Unknown Urine Color Yellow Urine Clarity Clear Urine pH 7.0 (<5.0-8.0) Urine Specific Revere >=1.030 (1.000-1.030) Urine Protein Negative mg/dL (NEG-TRACE) Urine Glucose (UA) Negative mg/dL (NEG) Urine Ketones (Stick) Negative mg/dL (NEG) Urine Blood Negative (NEG) Urine Nitrite Negative (NEG) Urine Bilirubin Negative (NEG) Urine Urobilinogen Dipstick 1.0 mg/dL (0.2 mg/dL) Urine Leukocyte Esterase Negative (NEG) Urine RBC Occ /HPF (0-2) Urine WBC 1-4 /HPF (0-4) Urine Squamous Epithelial Cells Many /LPF Urine Bacteria Few /HPF (0-FEW) Urine Mucus Slight /LPF Glucose (Fingerstick) 138 mg/dL (70-99) Test 02/17/20 07:10 Glucose (Fingerstick) 155 mg/dL (70-99) Allergies: Coded Allergies: No Known Drug Allergies (Unverified , 08/31/18) Medications: Current Medications Medications (Trade) Dose Ordered Sig/Joanna Route PRN Reason Start Time Stop Time Status Last Admin Dose Admin Sodium Chloride 1,000 ml @ 1,000 mls/hr 1X ONCE IV 02/16/20 23:00 02/16/20 23:59 DC 02/16/20 23:07 Iohexol (Omnipaque 240 Mg/ml) 30 ml 1X ONCE PO 02/16/20 23:45 02/16/20 23:46 DC 02/17/20 00:03 Iohexol (Omnipaque 300 Mg/ml) 75 ml 1X ONCE IV 02/16/20 23:45 02/16/20 23:46 DC 02/17/20 00:03 Piperacillin Sod/ Tazobactam Sod 3.375 gm/Sodium Chloride 50 ml @ 100 mls/hr 1X ONCE IV 02/17/20 01:30 02/17/20 01:59 DC 02/17/20 01:59 Imaging: Imaging: CT A/P FINDINGS: Lung bases are clear. Heart size is within normal limits. Hepatomegaly. Spleen is not enlarged. Right hepatic lobe measures 23.4 cm. No definite hepatic mass is identified. Adrenal glands are normal in appearance. Pancreas and gallbladder are normal. The abdominal aorta is normal in course and caliber. There are no pathologically enlarged lymph nodes in the abdomen and pelvis. There is no abdominal free fluid. There is no free intraperitoneal air. The kidneys enhance symmetrically. There is no suspicious renal mass. There is no hydronephrosis. There are no suspected calculi within the kidneys, ureters or urinary bladder. Urinary bladder is within normal limits given degree of distention. Oral contrast was administered. Opacified bowel loops demonstrate normal mucosal fold pattern no bowel obstruction or inflammation. Appendix is no rmal in appearance. Mild asymmetric fat stranding identified within the right mesorectal fat. Consideration may be given for proctitis with mild wall thickening of the rectum. Mild diverticulosis. No suspicious osseous normality. IMPRESSION: 1. Proctitis with inflammation localized to the rectum. Recommend direct visualization exclude underlying neoplastic process. 2. Hepatomegaly. PE: GEN: NAD HEENT: Atraumatic, PERRL LUNGS: CTAB anteriorly HEART: RRR ABD: NABS, S/ND, epigastric discomfort down to umbilicus EXTREMITY: No edema SKIN: No rashes, no jaundice NEURO/PSYCH: A & O 3 A/P: A/P: Rectal bleeding - acute onset yesterday Upper abdominal discomfort/bloating Microcytic anemia - chronic, normal iron Abnormal CT w/ proctitis Chronic nausea, ?GERD - on PPI QD since 11/2019 Elevated H. pylori IgG and IgA Ab CRC screen - average risk Diverticulosis - mild on CT Liver fibrosis - possible sickle cell hepatopathy -- D/w Dr. Lowe - will plan for outpt 'scopes unless bleeding is excessive. For now, try clears and monitor labs. Resume PPI. Given Zosyn x 1 in ER - ?continue? Will review H. pylori serologies w/ Dr. Lowe. AMARIS RUEDA Feb 17, 2020 09:21
[2020-02-17] MEDS: PANTOPRAZOLE 40 MG TABLET.DR. PO SCH (11:48)
[2020-02-17 12:25] LABS: HEMATOCRIT 31.2 % (36.0-47.0); HEMOGLOBIN 9.9 g/dL (12.0-15.5)
--- NOTE | 2020-02-17 17:52 | NUR ---
Dr. Devi paged re: poss. restart of pt's home meds and pt c/o SEVERINO.
[2020-02-17] MEDS ORDERED: DEXTROSE 50% 25 GM / 50ML DISP.SYRIN. IV PRN (18:00)
[2020-02-17] MEDS ORDERED: ACETAMINOPHEN 325 MG TABLET. PO PRN (18:30)
[2020-02-17] MEDS ORDERED: amLODIPine BESYLATE 5 MG TABLET PO SCH (21:00)
[2020-02-18 03:00] VITALS: BP 139/93
[2020-02-18 07:00] VITALS: BP 138/93
[2020-02-18 08:00] VITALS: BP 138/93
[2020-02-18] MEDS ORDERED: INSULIN LISPRO 300 UNITS/3 ML VIAL. SQ SCH (08:00)
[2020-02-18] MEDS: PANTOPRAZOLE 40 MG TABLET.DR. PO SCH (08:00)
[2020-02-18 08:13] LABS: BASO % 1 % (0-3); EOS # 0.2 x10^3/uL (0.0-0.7); EOS % 3 % (0-3); HEMATOCRIT 32.5 % (36.0-47.0); HEMOGLOBIN 10.1 g/dL (12.0-15.5); LYMPH # 2.5 x10^3/uL (1.0-4.8); LYMPH % 41 % (24-48); MEAN CORPUSCULAR HEMOGLOBIN 18 pg (25-35); MEAN CORPUSCULAR HGB CONC 31 g/dL (31-37); MEAN CORPUSCULAR VOLUME 57 fL (79-100); MONO # 0.3 x10^3/uL (0.0-1.1); MONO % 5 % (0-9); NEUT % 50 % (31-73); PLATELET COUNT 252 x10^3/uL (140-400); RED BLOOD COUNT 5.69 x10^6/uL (3.50-5.40); RED CELL DISTRIBUTION WIDTH 17.3 % (11.5-14.5)
[2020-02-18 08:25] LABS: CALCIUM 8.1 mg/dL (8.5-10.1); CREATININE 0.5 mg/dL (0.6-1.0); GFR 167.1; POTASSIUM 3.6 mmol/L (3.5-5.1)
--- NOTE | 2020-02-18 08:33 | PDOC ---
[employer] PROGRESS NOTE Date of Service DOS: DATE: 02/18/20 TIME: 08:27 Chief Complaint Chief Complaint Proctitis Hepatomegaly Liver cirrhosis Morbid obesity Anemia Hyperglycemia History of Present Illness History of Present Illness 02/18/2020 Patient seen and examined at bedside today Patient was pleasant and cheerful Discussed possibility of discharge soon Patient has no complaints Discussed with RN Discussed with manager rn case Vitals/I&O Vitals/I&O: Vital Signs Date Time Temp Pulse Resp B/P (MAP) Pulse Ox O2 Delivery O2 Flow Rate FiO2 02/18/20 08:06 Room Air 02/18/20 08:00 73 138/93 02/18/20 07:00 97.9 18 98 97.9 I & O 02/17/20 02/17/20 02/18/20 15:00 23:00 07:00 Intake Total 600 ml Balance 600 ml Physical Exam General: Oriented X3, Cooperative Heart: Regular rate, No murmurs Lungs: Clear Abdomen: Soft Extremities: No cyanosis, No edema Skin: No rashes, No significant lesion Labs Labs: Laboratory Tests Test 02/17/20 12:05 02/17/20 16:34 02/17/20 20:58 02/18/20 06:00 Hemoglobin 9.9 g/dL (12.0-15.5) Hematocrit 31.2 % (36.0-47.0) Mean Corpuscular Hemoglobin Concent 32 g/dL (31-37) Glucose (Fingerstick) 108 mg/dL (70-99) 164 mg/dL (70-99) Sodium Level 138 mmol/L (136-145) Potassium Level 3.6 mmol/L (3.5-5.1) Chloride Level 102 mmol/L (98-107) Carbon Dioxide Level 28 mmol/L (21-32) Anion Gap 8 (6-14) Blood Urea Nitrogen 7 mg/dL (7-20) Creatinine 0.5 mg/dL (0.6-1.0) Estimated GFR (Cockcroft-Gault) 167.1 Glucose Level 124 mg/dL (70-99) Calcium Level 8.1 mg/dL (8.5-10.1) Test 02/18/20 07:10 Glucose (Fingerstick) 137 mg/dL (70-99) Review of Systems Review of Systems: No visible lacerations Assessment and Plan Assessmemt and Plan ASSESSMENT Proctitis Hepatomegaly Liver cirrhosis Morbid obesity Anemia Hyperglycemia PLAN Continue IV antibiotics Outpatient colonoscopy GI okay with discharge Appreciate subspecialty input See dictation Comment Review of Relevant I have reviewed the following items jack (where applicable) has been applied. Medications: Current Medications Medications (Trade) Dose Ordered Sig/Joanna Route PRN Reason Start Time Stop Time Status Last Admin Dose Admin Pantoprazole Sodium (Protonix) 40 mg DAILYAC PO 02/17/20 09:30 02/18/20 08:00 Amlodipine Besylate (Norvasc) 5 mg HS PO 02/17/20 21:00 02/17/20 21:08 Lisinopril (Prinivil) 20 mg DAILY PO 02/18/20 09:00 02/18/20 08:00 Acetaminophen (Tylenol) 650 mg PRN Q6HRS PRN PO MILD PAIN / TEMP > 100.3'F 02/17/20 18:30 02/17/20 18:28 Justifications for Admission Other Justification DUONG MARTINES III DO Feb 18, 2020 08:33
[2020-02-18] MEDS ORDERED: LISINOPRIL 20 MG TABLET PO SCH (09:00)
--- NOTE | 2020-02-18 09:14 | NUR ---
SW following. Discussed with RN, discharge order for home with self care. RN advised no SW needs.
--- NOTE | 2020-02-18 09:25 | NUR ---
PT DISCHARGED HOME WITH SELF CARE. DISCHARGE INSTRUCTIONS AND PRESCRIPTIONS DISCUSSED. PT VERBALIZED UNDERSTANDING. IV REMOVED. PT PACKED BELONGINGS. PT AMBULATED AND DROVE HERSELF. NO FURTHER NEEDS.
--- NOTE | 2020-02-18 10:04 | PDOC ---
Date of Service: DATE: 02/18/20 TIME: 10:00 Subjective: Subjective: I saw her at 8:30 this morning before discharge. Has some new lower abdominal cramping but has not stooled or had recurrent bleeding. Tolerating diet, does still have same upper abdominal bloating. Would like to go home and pursue outpt EGD and colonoscopy next week. Objective: Objective: D/w nurse who later paged twice and asked (per Dr. Lora) if pt needed to DC on atbx - d/w Dr. Lowe and provided Rx for Cipro and Flagyl BID. Was also asked about return to work - okay per GI to return to work when pt feels up to it. Vital Signs: Vital Signs Date Time Temp Pulse Resp B/P (MAP) Pulse Ox O2 Delivery O2 Flow Rate FiO2 02/18/20 08:06 Room Air 02/18/20 08:00 73 138/93 02/18/20 07:00 97.9 18 98 97.9 Labs: Laboratory Tests Test 02/17/20 12:05 02/17/20 16:34 02/17/20 20:58 02/18/20 06:00 Hemoglobin 9.9 g/dL 10.1 g/dL Hematocrit 31.2 % 32.5 % Mean Corpuscular Hemoglobin Concent 32 g/dL 31 g/dL Glucose (Fingerstick) 108 mg/dL 164 mg/dL White Blood Count 6.0 x10^3/uL Red Blood Count 5.69 x10^6/uL Mean Corpuscular Volume 57 fL Mean Corpuscular Hemoglobin 18 pg Red Cell Distribution Width 17.3 % Platelet Count 252 x10^3/uL Neutrophils (%) (Auto) 50 % Lymphocytes (%) (Auto) 41 % Monocytes (%) (Auto) 5 % Eosinophils (%) (Auto) 3 % Basophils (%) (Auto) 1 % Neutrophils # (Auto) 3.0 x10^3/uL Lymphocytes # (Auto) 2.5 x10^3/uL Monocytes # (Auto) 0.3 x10^3/uL Eosinophils # (Auto) 0.2 x10^3/uL Basophils # (Auto) 0.0 x10^3/uL Sodium Level 138 mmol/L Potassium Level 3.6 mmol/L Chloride Level 102 mmol/L Carbon Dioxide Level 28 mmol/L Anion Gap 8 Blood Urea Nitrogen 7 mg/dL Creatinine 0.5 mg/dL Estimated GFR (Cockcroft-Gault) 167.1 Glucose Level 124 mg/dL Calcium Level 8.1 mg/dL Test 02/18/20 07:10 Glucose (Fingerstick) 137 mg/dL PE: GEN: NAD LUNGS: CTAB HEART: RRR ABD: soft, holding ice pack across lower abdomen NEURO/PSYCH: A & O 3 A/P: Rectal bleeding - resolved Upper abdominal discomfort/bloating - chronic Lower abdominal cramping - new today Microcytic anemia - chronic, normal iron - Hgb stable today Abnormal CT w/ proctitis Chronic nausea, ?GERD - on PPI QD since 11/2019 Elevated H. pylori IgG and IgA Ab CRC screen - average risk Diverticulosis - mild on CT Liver fibrosis - possible sickle cell hepatopathy, ?DUPREE -- Plans as above - has discharged since I saw. Office will contact to schedule EGD and colonoscopy. Justicifation of Admission Dx: Justifications for Admission: Justification of Admission Dx: N/A AMARIS RUEDA Feb 18, 2020 10:04
--- NOTE | 2020-02-18 13:33 | DS ---
DATE OF DISCHARGE: 02/18/2020 ADMISSION DIAGNOSIS: Proctitis. DISCHARGE DIAGNOSIS: Resolving proctitis. 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 Basically, she presented with some rectal pain, was noted to have proctitis with inflammation. She was admitted. We consulted GI, gave her IV antibiotics. Today, she is doing better. We plan to discharge on p.o. antibiotics. DISPOSITION: Home. ACTIVITY: As tolerated. DIET: Low sodium. MEDICATIONS: Please see the MRAD. TOTAL TIME: 34 minutes. DUONG MARTINES DO DR: TRACI/yanique JOB#: [id number] / [id number]
== END 2020-02-18 09:31 | disposition home or self-care (01) | DRG 394 ==
LOC: ER 21:52 → 4 NORTH 02-17 01:20
PROVIDERS: ADMIT Internal Medicine; ATTEND Internal Medicine
DX: K55.9 Vascular disorder of intestine, unspecified (principal); K62.5 Hemorrhage of anus and rectum; Z68.42 Body mass index [BMI] 45.0-49.9, adult; D50.9 Iron deficiency anemia, unspecified; D57.1 Sickle-cell disease without crisis; E11.65 Type 2 diabetes mellitus with hyperglycemia; E66.01 Morbid (severe) obesity due to excess calories; I10 Essential (primary) hypertension; K21.9 Gastro-esophageal reflux disease without esophagitis; K57.90 Diverticulosis of intestine, part unspecified, without perforation or abscess without bleeding; K74.00 Hepatic fibrosis, unspecified; K74.60 Unspecified cirrhosis of liver; Z82.3 Family history of stroke; Z82.49 Family history of ischemic heart disease and other diseases of the circulatory system; Z83.3 Family history of diabetes mellitus; Z86.73 Personal history of transient ischemic attack (TIA), and cerebral infarction without residual deficits; Z90.710 Acquired absence of both cervix and uterus; Z90.49 Acquired absence of other specified parts of digestive tract; Z98.51 Tubal ligation status
CPT/HCPCS: 36415; 74177; 80048; 80053; 81001; 82962; 85007; 85014; 85018; 85025; 85610; 96360; 96361; 99285; J2543; J7030; Q9966; Q9967; G0378

== ENCOUNTER → 2020-03-03 | Day surgery (SDC) | payer OTHER ==
[~2020-03-03] MED LIST changes: +IV RINGERS,LACTATED 1000ML 1,000 ML IV ONE; +LIDOCAINE 2% PF 5 ML VIAL. ONE; +PROPOFOL 10 MG/ML (20ML) VIAL. IV ONE
[2020-03-03 09:40] VITALS: BP 158/107
== END | disposition home or self-care (01) ==
LOC: ENDOS 06:39
PROVIDERS: ATTEND Internal Medicine Gastroenterology
DX: D50.9 Iron deficiency anemia, unspecified (principal); K29.40 Chronic atrophic gastritis without bleeding; R58 Hemorrhage, not elsewhere classified; K57.30 Diverticulosis of large intestine without perforation or abscess without bleeding; K63.5 Polyp of colon; K64.0 First degree hemorrhoids; K63.89 Other specified diseases of intestine; R93.3 Abnormal findings on diagnostic imaging of other parts of digestive tract; I10 Essential (primary) hypertension; E11.9 Type 2 diabetes mellitus without complications; E66.9 Obesity, unspecified; K21.9 Gastro-esophageal reflux disease without esophagitis; Z90.710 Acquired absence of both cervix and uterus; Z98.890 Other specified postprocedural states; Z86.73 Personal history of transient ischemic attack (TIA), and cerebral infarction without residual deficits; Z79.899 Other long term (current) drug therapy; Z79.84 Long term (current) use of oral hypoglycemic drugs; Z20.828 Contact with and (suspected) exposure to other viral communicable diseases
CPT/HCPCS: 36415; 43235; 45385; 82607; 87426; C9803; J2704; U0003

== ENCOUNTER 2020-03-28 00:51 | Emergency (ER) | payer OTHER ==
[~2020-03-28] VITALS: Ht 157.5 cm; Wt 112.3 kg
[~2020-03-28 00:51] MED LIST changes: -IV RINGERS,LACTATED 1000ML 1,000 ML IV ONE; -LIDOCAINE 2% PF 5 ML VIAL. ONE; -PROPOFOL 10 MG/ML (20ML) VIAL. IV ONE
[2020-03-28 00:55] VITALS: BP 180/110
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
== END 2020-03-28 04:10 | disposition home or self-care (01) ==
LOC: ER 00:51
DX: S50.02XA Contusion of left elbow, initial encounter (principal); S09.8XXA Other specified injuries of head, initial encounter; E11.9 Type 2 diabetes mellitus without complications; K21.9 Gastro-esophageal reflux disease without esophagitis; I10 Essential (primary) hypertension; Z86.73 Personal history of transient ischemic attack (TIA), and cerebral infarction without residual deficits; Z90.710 Acquired absence of both cervix and uterus; Z98.51 Tubal ligation status; Z90.89 Acquired absence of other organs; Z98.890 Other specified postprocedural states; V49.9XXA Car occupant (driver) (passenger) injured in unspecified traffic accident, initial encounter; Y93.89 Activity, other specified; Y92.413 State road as the place of occurrence of the external cause; Y99.8 Other external cause status
CPT/HCPCS: 73080; 81025; 99283

== ENCOUNTER → 2020-05-25 | Outpatient (CLI) | payer OTHER ==
--- NOTE | 2020-05-25 17:17 | CARD ---
MR#: [id number] Date of Study: 05/25/2020 Ordering Physician: CORNELIO LOPEZ, Referring Physician: CORNELIO LOPEZ Tech: Yolanda Mcfadden RDCS APPROVED REPORT EXAM: Two-dimensional and M-mode echocardiogram with Doppler and color Doppler. Other Information Quality : Good INDICATION Dizziness and Vertigo 2D DIMENSIONS RVDd3.4 (2.9-3.5cm)Left Atrium(2D)3.4 (1.6-4.0cm) IVSd0.8 (0.7-1.1cm)Aortic Root(2D)3.0 (2.0-3.7cm) LVDd5.2 (3.9-5.9cm)LVOT Diameter2.1 (1.8-2.4cm) PWd0.8 (0.7-1.1cm)LVDs2.6 (2.5-4.0cm) FS (%) 30.0 %SV106.0 ml Aortic Valve AoV Peak Gabe.163.8cm/sAoV VTI29.4cm AO Peak GR.10.7mmHgLVOT Peak Gabe.129.1cm/s LVOT VTI 26.41cmAO Mean GR.5mmHg MATTIE (VMAX)1.05ps8CEI (VTI)2.97cm2 Mitral Valve MV E Uzmylesr294.5cm/sMV DECEL BOBY526ys MV A Xotkpzch92.2cm/sMV SBW27lu E/A Ratio1.9MVA (PHT)7.38cm2 TDI E/Lateral E'15.3E/Medial E'12.6 Tricuspid Valve TR P. Rukkjlle207ji/sRAP NRLJTHZN3neFo TR Peak Gr.58hpYyLVRE50vaZd Pulmonary Vein S1 Ecuxyzmm50.2cm/sD2 Atepmikw11.2cm/s LEFT VENTRICLE The left ventricle is normal size. There is normal left ventricular wall thickness. The left ventricu lar systolic function is normal and the ejection fraction is within normal range. The Ejection Fracti on is 55-60%. There is normal LV segmental wall motion. Transmitral Doppler flow pattern is Grade I-a bnormal relaxation pattern. RIGHT VENTRICLE The right ventricle is normal size. The right ventricular systolic function is normal. ATRIA The left atrium size is normal. The right atrium size is normal. The interatrial septum is intact wit h no evidence for an atrial septal defect or patent foramen ovale as noted on 2-D or Doppler imaging. AORTIC VALVE The aortic valve is normal in structure and function. Doppler and Color Flow revealed no significant aortic regurgitation. There is no significant aortic valvular stenosis. MITRAL VALVE The mitral valve is normal in structure and function. There is no evidence of mitral valve prolapse. There is no mitral valve stenosis. Doppler and Color-flow revealed trace mitral regurgitation. TRICUSPID VALVE The tricuspid valve is normal in structure and function. Doppler and Color Flow revealed trace to mil d tricuspid regurgitation. The PA pressure was estimated at 37 mmHg. There is no tricuspid valve sten osis. PULMONIC VALVE The pulmonic valve is not well visualized. Doppler and Color Flow revealed trace to mild pulmonic josh vular regurgitation. There is no pulmonic valvular stenosis. GREAT VESSELS The aortic root is normal in size. The ascending aorta is normal in size. The IVC is normal in size a nd collapses >50% with inspiration. PERICARDIAL EFFUSION There is no evidence of significant pericardial effusion. Critical Notification Critical Value: No <Conclusion> The left ventricle is normal size. The left ventricular systolic function is normal and the ejection fraction is within normal range. The Ejection Fraction is 55-60%. Doppler and Color Flow revealed no significant aortic regurgitation. There is no significant aortic valvular stenosis. Doppler and Color-flow revealed trace mitral regurgitation. Doppler and Color Flow revealed trace to mild tricuspid regurgitation. The PA pressure was estimated at 37 mmHg. Signed by : Delano Pham MD Electronically Approved : 05/25/2020 17:17:07
== END ==
LOC: EDBD 05-19 08:00 → ECHO 10:48
PROVIDERS: ATTEND Internal Medicine Cardiovascular Disease
DX: I08.8 Other rheumatic multiple valve diseases (principal)
CPT/HCPCS: 93306

== ENCOUNTER → 2020-09-28 | Outpatient (CLI) | payer OTHER ==
[2020-09-28 12:17] LABS: FREE T4 0.98 ng/dL (0.76-1.46); THYROID STIM HORMONE (TSH) 1.09 uIU/mL (0.358-3.74)
[2020-09-30 21:08] LABS: GLIA IGA 26 units (0-19); GLIA IGG 3 units (0-19); TRANSGLUTAMINASE IGA AB <2 U/mL (0-3); TRANSGLUTAMINASE IGG AB 3 U/mL (0-5)
== END ==
LOC: LAB 10:52
PROVIDERS: ATTEND Internal Medicine Gastroenterology
DX: K59.00 Constipation, unspecified (principal)
CPT/HCPCS: 36415; 82310; 83516; 84439; 84443

== ENCOUNTER → 2021-06-23 | Outpatient (CLI) | payer OTHER ==
[~2021-06-23] MED LIST changes: -LISI1TAB20 PO; +LISI1TAB39 PO
[2021-06-23 10:35] LABS: BASO % 1 % (0-3); EOS # 0.1 x10^3/uL (0.0-0.7); EOS % 2 % (0-3); HEMATOCRIT 34.2 % (36.0-47.0); HEMOGLOBIN 10.8 g/dL (12.0-15.5); LYMPH # 2.2 x10^3/uL (1.0-4.8); LYMPH % 35 % (24-48); MEAN CORPUSCULAR HEMOGLOBIN 18 pg (25-35); MEAN CORPUSCULAR HGB CONC 32 g/dL (31-37); MEAN CORPUSCULAR VOLUME 57 fL (79-100); MONO # 0.4 x10^3/uL (0.0-1.1); MONO % 6 % (0-9); NEUT # 3.5 x10^3/uL (1.8-7.7); NEUT % 57 % (31-73); PLATELET COUNT 287 x10^3/uL (140-400); RED BLOOD COUNT 6.01 x10^6/uL (3.50-5.40); RED CELL DISTRIBUTION WIDTH 17.3 % (11.5-14.5); WHITE BLOOD COUNT 6.2 x10^3/uL (4.0-11.0)
[2021-06-23 10:56] LABS: ALBUMIN 3.4 g/dL (3.4-5.0); ALBUMIN/GLOBULIN RATIO 0.7 (1.0-1.7); CALCIUM 8.6 mg/dL (8.5-10.1); CREATININE 0.7 mg/dL (0.6-1.0); GFR 112.1; TOTAL BILIRUBIN 0.8 mg/dL (0.2-1.0); TOTAL PROTEIN 8.2 g/dL (6.4-8.2)
[2021-06-23 11:24] LABS: ANISOCYTOSIS SLIGHT; PLT ESTIMATE ADEQUATE (ADEQUATE)
[2021-06-23 11:25] LABS: MICROCYTOSIS PRESENT; TARGET CELLS OCC
== END ==
LOC: LAB 10:11
PROVIDERS: ATTEND Physician Assistant
DX: R10.13 Epigastric pain (principal)
CPT/HCPCS: 36415; 80053; 83690; 85025

== ENCOUNTER 2021-07-06 12:57 | Emergency (ER) | payer OTHER ==
[~2021-07-06] VITALS: Ht 165.1 cm; Wt 119.0 kg
[2021-07-06] MEDS ORDERED: KETOROLAC 30 MG/ML VIAL. IVP ONE (14:00)
--- NOTE | 2021-07-06 14:51 | PHYS DOC ---
Past Medical History Past Medical History: Diabetes-Type II, GERD, Hypertension, Sickle Cell D isease, TIA Additional Past Medical Histor: tia 2011 & 2016,TMJ; ovarian cysts Past Surgical History: Hysterectomy, Tonsillectomy, Tubal ligation, Other Additional Past Surgical Histo: D&C, addenoidectomy, rods & screws Left FA Smoking Status: Never Smoker Alcohol Use: None Drug Use: None General Adult EDM: Chief Complaint: ABDOMINAL PAIN HPI: HPI: Patient is a 41-year-old female who presents today with right lower quadrant abdominal pain. Patient states her pain started last evening, and she said over the course of the morning the pain has worsened. Patient's denies any nausea, vomiting, or diarrhea but does state that she has had a decreased appetite and oral intake. Patient denies fever and chills. Patient states that she has a past medical history of a hysterectomy in the past but still has her ovaries, her appendix, and her gallbladder. Review of Systems: Review of Systems: Constitutional: Denies fever or chills. [] Eyes: Denies change in visual acuity. [] HENT: Denies nasal congestion or sore throat. [] Respiratory: Denies cough or shortness of breath. [] Cardiovascular: Denies chest pain or edema. [] GI: abdominal pain and decreased appetite denies nausea, vomiting, bloody stools or diarrhea. [] : Denies dysuria. [] Musculoskeletal: Denies back pain or joint pain. [] Integument: Denies rash. [] Neurologic: Denies headache, focal weakness or sensory changes. [] Endocrine: Denies polyuria or polydipsia. [] Lymphatic: Denies swollen glands. [] Psychiatric: Denies depression or anxiety. [] Heart Score: C/O Chest Pain: No Risk Factors: Risk Factors: DM, Current or recent (<one month) smoker, HTN, HLP, family history of CAD, obesity. Risk Scores: Score 0 - 3: 2.5% MACE over next 6 weeks - Discharge Home Score 4 - 6: 20.3% MACE over next 6 weeks - Admit for Clinical Observation Score 7 - 10: 72.7% MACE over next 6 weeks - Early Invasive Strategies Current Medications: Current Medications Medications (Trade) Dose Ordered Sig/Joanna Start Time Stop Time Status Last Admin Dose Admin Ketorolac Tromethamine (Toradol 30mg Vial) 30 mg 1X ONCE 07/06/21 14:00 07/06/21 14:01 DC Allergies: Allergies: Allergies Coded Allergies Type Severity Reaction Last Updated Verified No Known Drug Allergies 07/06/21 No Physical Exam: PE: Constitutional: Well developed, well nourished, no acute distress, non-toxic appearance. [] HENT: Normocephalic, atraumatic, bilateral external ears normal, oropharynx moist, no oral exudates, nose normal. [] Eyes: PERRLA, EOMI, conjunctiva normal, no discharge. [] Neck: Normal range of motion, no tenderness, supple, no stridor. [] Cardiovascular:Heart rate regular rhythm, no murmur [] Lungs & Thorax: Bilateral breath sounds clear to auscultation [] Abdomen: Abdomen soft and rounded, tenderness is located in the right lower quadrant, bowel sounds are hypoactive no pulsatile masses or masses noted Skin: Warm, dry, no erythema, no rash. [] Back: No tenderness, no CVA tenderness. [] Extremities: No tenderness, no cyanosis, no clubbing, ROM intact, no edema. [] Neurologic: Alert and oriented X 3, normal motor function, normal sensory function, no focal deficits noted. [] Psychologic: Affect normal, judgement normal, mood normal. [] Current Patient Data: Labs: Laboratory Tests Test 07/06/21 14:30 07/06/21 14:45 White Blood Count 8.2 x10^3/uL Red Blood Count 5.94 x10^6/uL Hemoglobin 10.8 g/dL Hematocrit 33.8 % Mean Corpuscular Volume 57 fL Mean Corpuscular Hemoglobin 18 pg Mean Corpuscular Hemoglobin Concent 32 g/dL Red Cell Distribution Width 17.7 % Platelet Count 281 x10^3/uL Neutrophils (%) (Auto) 54 % Lymphocytes (%) (Auto) 36 % Monocytes (%) (Auto) 6 % Eosinophils (%) (Auto) 2 % Basophils (%) (Auto) 2 % Neutrophils # (Auto) 4.4 x10^3/uL Lymphocytes # (Auto) 3.0 x10^3/uL Monocytes # (Auto) 0.5 x10^3/uL Eosinophils # (Auto) 0.1 x10^3/uL Basophils # (Auto) 0.2 x10^3/uL Platelet Estimate Adequate Hypochromasia Mod Anisocytosis Slight Microcytosis Slight Sodium Level 140 mmol/L Potassium Level 4.3 mmol/L Chloride Level 103 mmol/L Carbon Dioxide Level 29 mmol/L Anion Gap 8 Blood Urea Nitrogen 12 mg/dL Creatinine 0.7 mg/dL Estimated GFR (Cockcroft-Gault) 112.1 BUN/Creatinine Ratio 17 Glucose Level 134 mg/dL Lactic Acid Level 1.4 mmol/L Calcium Level 9.0 mg/dL Total Bilirubin 0.5 mg/dL Aspartate Amino Transf (AST/SGOT) 16 U/L Alanine Aminotransferase (ALT/SGPT) 21 U/L Alkaline Phosphatase 84 U/L Total Protein 7.4 g/dL Albumin 3.4 g/dL Albumin/Globulin Ratio 0.9 Urine Collection Type Unknown Urine Color (Auto) Light yellow Urine Turbidity Clear Urine pH (Auto) 5.5 Urine Specific [place] 1.023 Urine Protein (Auto) Negative mg/dL Urine Glucose (Auto)(UA) Negative mg/dL Urine Ketones (Auto) Negative mg/dL Urine Blood (Auto) Negative Urine Nitrite Negative Urine Bilirubin (Auto) Negative Urine Urobilinogen (Auto) Normal mg/dL Urine Leukocyte Esterase (Auto) Negative Urine RBC 0 /HPF Urine WBC 0 /HPF Urine Squamous Epithelial Cells Mod /LPF Urine Bacteria Moderate /HPF Urine Mucus Marked /LPF Current Medications Medications (Trade) Dose Ordered Sig/Joanna Route PRN Reason Start Time Stop Time Status Last Admin Dose Admin Ketorolac Tromethamine (Toradol 30mg Vial) 30 mg 1X ONCE IVP 07/06/21 14:00 07/06/21 14:01 DC 07/06/21 14:48 Vital Signs: Vital Signs Date Time Temp Pulse Resp B/P (MAP) Pulse Ox O2 Delivery O2 Flow Rate FiO2 07/06/21 13:45 98.5 79 16 149/91 (110) 99 Room Air 98.5 EKG: EKG: [] Radiology/Procedures: Radiology/Procedures: REASON: RLQ abdominal pain PROCEDURE: CT ABDOMEN PELVIS WO CONTRAST CT abdomen and pelvis without contrast PQRS statement: CT scans at this facility use dose reduction including either automated exposure control, iterative reconstructions, and /or weight based radiation dosing via mA and kV modification when appropriate to reduce radiation dose to as low as reasonably achievable. HISTORY: Right lower quadrant abdominal pain. COMPARISON: CT abdomen February 16, 2020 Abdomen findings: No urinary calculi or hydronephrosis or perinephric edema. Significant hepatomegaly with elongation of the right hepatic lobe measuring 23 cm in length. This is stable. Gallbladder, pancreas, adrenals, kidneys, spleen small accessory spleens normal. No urinary calculi or hydronephrosis. Sigmoid colonic diverticulosis. The appendix is normal. No obstruction or inflammation of the GI tract. No abdominal fluid. Lung bases and bones are unremarkable. Pelvis findings: Uterus absent. Right of midline likely arising within the right adnexa is a 4 cm oval mass internal density 30 units this is new. This mass may also abuts the left ovary. This mass also abuts adjacent pelvic bowel loops best demonstrated image 63. Pelvic phleboliths. No bladder calculi. Rectum and bones are unremarkable. IMPRESSION: 1. Hysterectomy. There is a 4 cm right adnexal mass with internal density of 30 units. This could be a hyperdense ovarian cyst although a complex cystic or solid neoplastic mass is also a possibility based on this noncontrast internal density. Consider further assessment with pelvic sonography. 2. The appendix is normal. 3. Other incidental findings as described above. Electronically signed by: Jose Ocasio MD (07/06/2021 2:22 PM) [facility] REASON: right adnexal mass evaluation seen on CT scan PROCEDURE: PELVIS W/TV EXAM: Complete transvaginal pelvic ultrasound INDICATION: Hysterectomy. Right adnexal mass seen on recent CT abdomen and pelvis. COMPARISON: CT abdomen and pelvis July 06.2 TECHNIQUE: Transabdominal and transvaginal transducer. Grayscale and duplex Doppler sonography sonography was performed. FINDINGS: Transabdominal pelvic sonography demonstrates absence of uterus. The right adnexa the right ovary measures 5.6 x 3.5 x 4.5 cm and is replaced predominantly with by a unilocular hypoechoic cystic structure which measures 2.7 x 4.3 x 3.0 cm. Left ovary not visualized transabdominal. Transvaginal pelvic sonography demonstrates enlargement of the right ovary measuring 4.7 x 3.9 x 4.7 cm, replaced predominantly by a complex hypoechoic cystic mass with internal hypoechogenicity with lacelike internal septations and numerous internal microcystic foci, there is no internal discrete solid nodularity or vascularity of this cyst on color Doppler sonography. There is intact Blood flow to the displaced parenchyma peripheral to this cyst. Uterus absent. Left ovary measures 2.8 x 2.1 x 1.9 cm with a couple of subcentimeter follicles. Left ovarian blood flow intact. IMPRESSION: 1. Hysterectomy. 2. Left ovary is normal. 3. Right ovary is enlarged and predominantly replaced by a 4.3 x 2.7 x 3.0 cm complex cystic mass with internal hypoechogenicity surrounding microcystic foci and septations, no discrete solid nodule or vascularity within the internal contents of this cyst. This is most likely a subacute to chronic hemorrhagic cyst. Follow-up pelvic sonography in 3 months is advised to document that this remains stable or resolves over time to exclude the possibility of a slowly growing low-grade neoplastic nodule which is considered unlikely. Electronically signed by: Jose Ocasio MD (07/06/2021 3:47 PM) [facility] Course & Med Decision Making: Course & Med Decision Making Pertinent Labs and Imaging studies reviewed. (See chart for details) 1610 I reviewed radiological and laboratory results with the patient did inform her she had a right ovarian cyst which could be hemorrhagic in nature, it was recommended by radiology that she have a follow-up visit within 3 months for another ultrasound. 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 I will give the patient some hydrocodone's to have for any breakthrough pain and she states she has medication for nausea. Patient is encouraged to return here to the emergency department should she have increased pain, nausea vomiting, any other development of fever. Albert Disclaimer: Albert Disclaimer: This electronic medical record was generated, in whole or in part, using a voice recognition dictation system. Departure Departure Impression: Primary Impression: Ovarian cyst Qualified Codes: N83.201 - Unspecified ovarian cyst, right side Disposition: HOME / SELF CARE / HOMELESS Condition: STABLE Referrals: Alicia PRINCE MD (PCP) BRYN RUBIO MD Patient Instructions: Ovarian Cyst Additional Instructions: Hydrocodone take 1 tablet every 6 hours as needed for severe pain, use with caution may cause drowsiness and constipation [id number] ibuprofen as labeled directed for mild to moderate pain Follow-up with Dr. Rubio for further evaluation and management of this right ovarian cyst Return to the emergency department should you have increased pain that is not relieved with the hydrocodone, nausea and vomiting that you are unable to take any pain medication, or develop a fever. Scripts Hydrocodone Bit/Acetaminophen (HYDROCODONE-APAP 5-325 ) 1 Tab Tablet 1 TAB PO PRN Q6HRS PRN for PAIN, #14 TAB 0 Refills Prov: EPIFANIO GOSS APRN 07/06/21 EPIFANIO GOSS APRN July 06, 2021 14:51
[2021-07-06 14:52] LABS: BASO # 0.2 x10^3/uL (0.0-0.2); BASO % 2 % (0-3); EOS # 0.1 x10^3/uL (0.0-0.7); EOS % 2 % (0-3); HEMATOCRIT 33.8 % (36.0-47.0); HEMOGLOBIN 10.8 g/dL (12.0-15.5); LYMPH % 36 % (24-48); MEAN CORPUSCULAR HEMOGLOBIN 18 pg (25-35); MEAN CORPUSCULAR HGB CONC 32 g/dL (31-37); MEAN CORPUSCULAR VOLUME 57 fL (79-100); MONO # 0.5 x10^3/uL (0.0-1.1); MONO % 6 % (0-9); NEUT # 4.4 x10^3/uL (1.8-7.7); NEUT % 54 % (31-73); PLATELET COUNT 281 x10^3/uL (140-400); RED BLOOD COUNT 5.94 x10^6/uL (3.50-5.40); RED CELL DISTRIBUTION WIDTH 17.7 % (11.5-14.5); WHITE BLOOD COUNT 8.2 x10^3/uL (4.0-11.0)
[2021-07-06 15:02] LABS: CREATININE 0.7 mg/dL (0.6-1.0); GFR 112.1; POTASSIUM 4.3 mmol/L (3.5-5.1)
[2021-07-06 15:08] LABS: ALBUMIN 3.4 g/dL (3.4-5.0); ALBUMIN/GLOBULIN RATIO 0.9 (1.0-1.7); TOTAL BILIRUBIN 0.5 mg/dL (0.2-1.0); TOTAL PROTEIN 7.4 g/dL (6.4-8.2)
[2021-07-06 15:15] LABS: BACTERIA,URINE MODERATE /HPF (0-FEW); RBC,URINE 0 /HPF (0-2); WBC,URINE 0 /HPF (0-4)
[2021-07-06 15:28] LABS: HYPOCHROMIA MOD; PLT ESTIMATE ADEQUATE (ADEQUATE)
[2021-07-06 15:29] LABS: ANISOCYTOSIS SLIGHT; MICROCYTOSIS SLIGHT
--- NOTE | 2021-07-06 15:59 | RAD ---
CT abdomen and pelvis without contrast PQRS statement: CT scans at this facility use dose reduction including either automated exposure cont rol, iterative reconstructions, and /or weight based radiation dosing via mA and kV modification when appropriate to reduce radiation dose to as low as reasonably achievable. HISTORY: Right lower quadrant abdominal pain. COMPARISON: CT abdomen February 16, 2020 Abdomen findings: No urinary calculi or hydronephrosis or perinephric edema. Significant hepatomegaly with elongation of the right hepatic lobe measuring 23 cm in length. This is stable. Gallbladder, pa ncreas, adrenals, kidneys, spleen small accessory spleens normal. No urinary calculi or hydronephrosi s. Sigmoid colonic diverticulosis. The appendix is normal. No obstruction or inflammation of the GI t ract. No abdominal fluid. Lung bases and bones are unremarkable. Pelvis findings: Uterus absent. Right of midline likely arising within the right adnexa is a 4 cm ova l mass internal density 30 units this is new. This mass may also abuts the left ovary. This mass also abuts adjacent pelvic bowel loops best demonstrated image 63. Pelvic phleboliths. No bladder calculi . Rectum and bones are unremarkable. IMPRESSION: 1. Hysterectomy. There is a 4 cm right adnexal mass with internal density of 30 units. This could be a hyperdense ovarian cyst although a complex cystic or solid neoplastic mass is also a possibility ba sed on this noncontrast internal density. Consider further assessment with pelvic sonography. 2. The appendix is normal. 3. Other incidental findings as described above. Electronically signed by: Jose Ocasio MD (07/06/2021 2:22 PM) [facility]
--- NOTE | 2021-07-06 16:00 | RAD ---
EXAM: Complete transvaginal pelvic ultrasound INDICATION: Hysterectomy. Right adnexal mass seen on recent CT abdomen and pelvis. COMPARISON: CT abdomen and pelvis July 06.2 TECHNIQUE: Transabdominal and transvaginal transducer. Grayscale and duplex Doppler sonography sonogr aphy was performed. FINDINGS: Transabdominal pelvic sonography demonstrates absence of uterus. The right adnexa the right ovary measures 5.6 x 3.5 x 4.5 cm and is replaced predominantly with by a unilocular hypoechoic cystic structure which measures 2.7 x 4.3 x 3.0 cm. Left ovary not visualized t ransabdominal. Transvaginal pelvic sonography demonstrates enlargement of the right ovary measuring 4.7 x 3.9 x 4.7 cm, replaced predominantly by a complex hypoechoic cystic mass with internal hypoechogenicity with la celike internal septations and numerous internal microcystic foci, there is no internal discrete jesus d nodularity or vascularity of this cyst on color Doppler sonography. There is intact Blood flow to the displaced parenchyma peripheral to this cyst. Uterus absent. Left ovary measures 2. 8 x 2.1 x 1.9 cm with a couple of subcentimeter follicles. Left ovarian blood flow intact. IMPRESSION: 1. Hysterectomy. 2. Left ovary is normal. 3. Right ovary is enlarged and predominantly replaced by a 4.3 x 2.7 x 3.0 cm complex cystic mass wit h internal hypoechogenicity surrounding microcystic foci and septations, no discrete solid nodule or vascularity within the internal contents of this cyst. This is most likely a subacute to chronic hemo rrhagic cyst. Follow-up pelvic sonography in 3 months is advised to document that this remains stable or resolves over time to exclude the possibility of a slowly growing low-grade neoplastic nodule whi ch is considered unlikely. Electronically signed by: Jose Ocasio MD (07/06/2021 3:47 PM) [facility]
[2021-07-06 16:19] VITALS: BP 147/94
[2021-07-06] MEDS ORDERED: HYDR-2761 PO (16:20)
== END 2021-07-06 17:53 | disposition home or self-care (01) ==
LOC: ER 12:57
DX: N83.201 Unspecified ovarian cyst, right side (principal); E11.9 Type 2 diabetes mellitus without complications; K21.9 Gastro-esophageal reflux disease without esophagitis; I10 Essential (primary) hypertension; Z90.710 Acquired absence of both cervix and uterus; Z98.51 Tubal ligation status
CPT/HCPCS: 36415; 74176; 76830; 76856; 80053; 81001; 83605; 85025; 87086; 96374; 99284; J1885